=== PATIENT | male | born 1945 | race Caucasian/White ===

== ENCOUNTER 2020-07-12 09:45 | Outpatient (REF) | payer MEDICARE, SELFPAY ==
[2020-07-12 11:14] LABS: Estimated Average Glucose 157 mg/dL; Hemoglobin A1c % 7.1 %
[2020-07-12 11:31] LABS: Alanine Aminotransferase 20 U/L (0-40); Alkaline Phosphatase 101 U/L (39-117); Anion Gap 13 (12-20); Aspartate Amino Transferase 18 U/L (5-37); Bilirubin Total 0.7 mg/dL (0.0-1.0); Blood Urea Nitrogen 27 mg/dL (9-16); Calcium 9.1 mg/dL (8.4-10.2); Carbon Dioxide 29 mmol/L (22-29); Chloride 102 mmol/L (96-108); Estimated Glomerular Filt Rate > 60; Glucose Random 94 mg/dL (60-115); Potassium 4.5 mmol/l (3.3-5.1); Sodium 139 mmol/L (135-145); Total Protein 6.5 g/dL (6.5-8.0)
== END 2020-07-12 09:46 | disposition home or self-care (01) ==
LOC: HO.LAB 09:45
PROVIDERS: PCP Internal Medicine; Visit Provider Internal Medicine
DX: E03.8 Other specified hypothyroidism (principal); E11.9 Type 2 diabetes mellitus without complications; E78.00 Pure hypercholesterolemia, unspecified; Z00.00 Encounter for general adult medical examination without abnormal findings
CPT/HCPCS: 80053; 83036

== ENCOUNTER 2020-10-18 12:36 | Outpatient (REF) | payer MEDICARE, SELFPAY ==
[2020-10-18 13:48] LABS: Estimated Average Glucose 151 mg/dL; Hemoglobin A1c % 6.9 %
[2020-10-18 13:51] LABS: Alanine Aminotransferase 23 U/L (0-40); Albumin Level 4.1 g/dL (3.5-5.0); Alkaline Phosphatase 104 U/L (39-117); Anion Gap 15 (12-20); Aspartate Amino Transferase 19 U/L (5-37); Bilirubin Total 0.5 mg/dL (0.0-1.0); Blood Urea Nitrogen 31 mg/dL (9-16); Calcium 9.3 mg/dL (8.4-10.2); Carbon Dioxide 28 mmol/L (22-29); Chloride 103 mmol/L (96-108); Estimated Glomerular Filt Rate > 60; Glucose Random 77 mg/dL (60-115); Potassium 4.5 mmol/l (3.3-5.1); Sodium 141 mmol/L (135-145); Total Protein 6.7 g/dL (6.5-8.0)
[2020-10-18 14:13] LABS: Thyroid Stimulating Hormone 1.66 uIU/mL (0.32-4.0)
== END 2020-10-18 12:37 | disposition home or self-care (01) ==
LOC: HO.LAB 12:36
PROVIDERS: PCP Internal Medicine; Visit Provider Internal Medicine
DX: E03.8 Other specified hypothyroidism (principal); E11.9 Type 2 diabetes mellitus without complications; E78.00 Pure hypercholesterolemia, unspecified
CPT/HCPCS: 36415; 80053; 83036; 84443

== ENCOUNTER 2021-01-17 08:47 | Outpatient (REF) | payer MEDICARE, SELFPAY ==
[2021-01-17 09:57] LABS: Estimated Average Glucose 148 mg/dL; Hemoglobin A1c % 6.8 %
[2021-01-17 10:11] LABS: Alanine Aminotransferase 25 U/L (0-40); Alkaline Phosphatase 107 U/L (39-117); Anion Gap 12 (12-20); Aspartate Amino Transferase 18 U/L (5-37); Bilirubin Total 0.6 mg/dL (0.0-1.0); Blood Urea Nitrogen 29 mg/dL (9-16); Calcium 9.5 mg/dL (8.4-10.2); Carbon Dioxide 31 mmol/L (22-29); Chloride 102 mmol/L (96-108); Estimated Glomerular Filt Rate > 60; Glucose Random 153 mg/dL (60-115); Potassium 4.7 mmol/L (3.3-5.1); Sodium 140 mmol/L (135-145); Total Protein 6.5 g/dL (6.5-8.0)
== END 2021-01-17 08:48 | disposition home or self-care (01) ==
LOC: HO.LAB 08:47
PROVIDERS: PCP Internal Medicine; Visit Provider Internal Medicine
DX: E03.8 Other specified hypothyroidism (principal); E11.9 Type 2 diabetes mellitus without complications; E78.00 Pure hypercholesterolemia, unspecified
CPT/HCPCS: 36415; 80053; 83036

== ENCOUNTER 2021-07-04 09:28 | Outpatient (REF) | payer MEDICARE, SELFPAY ==
[2021-07-04 10:10] LABS: Estimated Average Glucose 151 mg/dL; Hemoglobin A1c % 6.9 %
[2021-07-04 10:31] LABS: Alanine Aminotransferase 19 U/L (0-40); Alkaline Phosphatase 85 U/L (39-117); Anion Gap 11 (12-20); Aspartate Amino Transferase 15 U/L (5-37); Bilirubin Total 0.6 mg/dL (0.0-1.0); Blood Urea Nitrogen 27 mg/dL (9-16); Calcium 9.2 mg/dL (8.4-10.2); Carbon Dioxide 28 mmol/L (22-29); Chloride 106 mmol/L (96-108); Cholesterol 122 mg/dL; Estimated Glomerular Filt Rate > 60; Glucose Random 130 mg/dL (60-115); HDL Cholesterol 32 mg/dL; LDL Cholesterol Calculated 65 mg/dl; Potassium 4.4 mmol/L (3.3-5.1); Sodium 141 mmol/L (135-145); Total Protein 6.5 g/dL (6.5-8.0); Triglycerides 125 mg/dL
[2021-07-04 10:42] LABS: Creatinine Urine 96.94 mg/dL; Microalbum/Creatinine Ratio Ur 6.1 ug/mg cr
[2021-07-04 10:54] LABS: Thyroid Stimulating Hormone 2.18 uIU/mL (0.32-4.0)
== END 2021-07-04 09:29 | disposition home or self-care (01) ==
LOC: HO.LAB 09:28
PROVIDERS: PCP Internal Medicine; Visit Provider Internal Medicine
DX: Z00.01 Encounter for general adult medical examination with abnormal findings (principal); E03.9 Hypothyroidism, unspecified; E11.40 Type 2 diabetes mellitus with diabetic neuropathy, unspecified; E78.00 Pure hypercholesterolemia, unspecified; I10 Essential (primary) hypertension
CPT/HCPCS: 36415; 80053; 80061; 82043; 83036; 84443

== ENCOUNTER 2021-10-05 07:30 | Outpatient (REF) | payer MEDICARE, SELFPAY ==
[2021-10-05 08:23] LABS: Estimated Average Glucose 154 mg/dL
[2021-10-05 08:40] LABS: Alanine Aminotransferase 16 U/L (0-40); Alkaline Phosphatase 102 U/L (39-117); Anion Gap 11 (12-20); Aspartate Amino Transferase 15 U/L (5-37); Bilirubin Total 0.7 mg/dL (0.0-1.0); Blood Urea Nitrogen 26 mg/dL (9-16); Calcium 9.7 mg/dL (8.4-10.2); Carbon Dioxide 32 mmol/L (22-29); Chloride 102 mmol/L (96-108); Estimated Glomerular Filt Rate > 60; Glucose Random 98 mg/dL (60-115); Potassium 4.1 mmol/L (3.3-5.1); Sodium 141 mmol/L (135-145); Total Protein 6.8 g/dL (6.5-8.0)
== END 2021-10-05 07:31 | disposition home or self-care (01) ==
LOC: HO.LAB 07:30
PROVIDERS: PCP Internal Medicine; Visit Provider Internal Medicine
DX: E03.9 Hypothyroidism, unspecified (principal); E11.40 Type 2 diabetes mellitus with diabetic neuropathy, unspecified; E78.00 Pure hypercholesterolemia, unspecified; I10 Essential (primary) hypertension
CPT/HCPCS: 36415; 80053; 83036

== ENCOUNTER 2021-12-02 08:24 | Outpatient (REF) | payer MEDICARE, SELFPAY ==
[2021-12-02 08:51] LABS: MANUAL DIFF FLAG NO
[2021-12-02 09:16] LABS: Basophils Percent Auto 0.5 % (0-2); Eosinophils Absolute Auto 0.1 X10*3/uL (0.0-0.4); Eosinophils Percent Auto 1.4 % (0-4); Hematocrit 48.5 % (42.0-52.0); Hemoglobin 15.6 g/dl (14.0-18.0); Imm Gran Abs Auto 0.04 X10*3/uL (0.00-0.03); Imm Gran Pct Auto 0.5 % (0.0-0.4); Lymphocytes Absolute Auto 2.4 X10*3/uL (1.2-4.9); Lymphocytes Percent Auto 30.1 % (20-40); Mean Corpuscular HGB Conc 32.2 g/dl (31.0-36.0); Mean Corpuscular Hemoglobin 30.6 pg (27.0-33.0); Mean Corpuscular Volume 95.1 fL (80.0-98.0); Monocytes Absolute Auto 0.5 X10*3/uL (0.1-1.2); Monocytes Percent Auto 6.6 % (2-11); Neutrophils Absolute Auto 4.8 x10*3/uL (2.0-8.3); Neutrophils Percent Auto 60.9 % (45-73); Platelet Count 150 X10*3/uL (160-400); Red Cell Distribution Width 13.5 % (11.0-16.0); White Blood Count 7.8 X10*3/uL (4.8-10.8)
[2021-12-02 09:20] LABS: INTERNATIONAL NORM RATIO 1.1 (0.9-1.1); Prothrombin Time 12.1 SEC (9.9-13.0)
[2021-12-02 09:46] LABS: Anion Gap 10 (12-20); Blood Urea Nitrogen 26 mg/dL (9-16); Calcium 9.6 mg/dL (8.4-10.2); Carbon Dioxide 30 mmol/L (22-29); Chloride 104 mmol/L (96-108); Estimated Glomerular Filt Rate > 60; Glucose Random 95 mg/dL (60-115); Potassium 4.4 mmol/L (3.3-5.1); Sodium 140 mmol/L (135-145)
== END 2021-12-02 08:25 | disposition home or self-care (01) ==
LOC: HO.LAB 08:24
PROVIDERS: PCP Internal Medicine; Visit Provider Internal Medicine Cardiovascular Disease
DX: I25.10 Atherosclerotic heart disease of native coronary artery without angina pectoris (principal)
CPT/HCPCS: 36415; 80048; 85025; 85610

== ENCOUNTER 2022-01-02 08:11 | Outpatient (REF) | payer MEDICARE, SELFPAY ==
[2022-01-02 08:37] LABS: MANUAL DIFF FLAG NO
[2022-01-02 08:55] LABS: Basophils Percent Auto 0.4 % (0-2); Eosinophils Absolute Auto 0.1 X10*3/uL (0.0-0.4); Eosinophils Percent Auto 1.4 % (0-4); Hematocrit 46.7 % (42.0-52.0); Hemoglobin 15.2 g/dl (14.0-18.0); Imm Gran Abs Auto 0.05 X10*3/uL (0.00-0.03); Imm Gran Pct Auto 0.5 % (0.0-0.4); Lymphocytes Absolute Auto 2.1 X10*3/uL (1.2-4.9); Lymphocytes Percent Auto 23.4 % (20-40); Mean Corpuscular HGB Conc 32.5 g/dl (31.0-36.0); Mean Corpuscular Hemoglobin 30.3 pg (27.0-33.0); Mean Corpuscular Volume 93.2 fL (80.0-98.0); Mean Platelet Volume 11.1 fL (9.4-12.4); Monocytes Absolute Auto 0.8 X10*3/uL (0.1-1.2); Monocytes Percent Auto 8.2 % (2-11); Neutrophils Absolute Auto 6.1 x10*3/uL (2.0-8.3); Neutrophils Percent Auto 66.1 % (45-73); Platelet Count 145 X10*3/uL (160-400); Red Blood Count 5.01 X10*6/uL (4.60-5.80); Red Cell Distribution Width 13.6 % (11.0-16.0); White Blood Count 9.2 X10*3/uL (4.8-10.8)
[2022-01-02 09:00] LABS: Estimated Average Glucose 146 mg/dL; Hemoglobin A1c % 6.7 %
[2022-01-02 09:14] LABS: Alanine Aminotransferase 17 U/L (0-40); Alkaline Phosphatase 102 U/L (39-117); Anion Gap 12 (12-20); Aspartate Amino Transferase 16 U/L (5-37); Bilirubin Total 0.8 mg/dL (0.0-1.0); Blood Urea Nitrogen 29 mg/dL (9-16); Calcium 9.6 mg/dL (8.4-10.2); Carbon Dioxide 30 mmol/L (22-29); Chloride 102 mmol/L (96-108); Estimated Glomerular Filt Rate > 60; Glucose Random 109 mg/dL (60-115); Potassium 4.4 mmol/L (3.3-5.1); Sodium 140 mmol/L (135-145); Total Protein 6.6 g/dL (6.5-8.0)
[2022-01-02 09:38] LABS: Thyroid Stimulating Hormone 1.54 uIU/mL (0.32-4.0)
[2022-01-02 09:55] LABS: INTERNATIONAL NORM RATIO 1.1 (0.9-1.1); Prothrombin Time 12.6 SEC (9.9-13.0)
== END 2022-01-02 08:12 | disposition home or self-care (01) ==
LOC: HO.LAB 08:11
PROVIDERS: Absent Provider Internal Medicine Cardiovascular Disease; PCP Internal Medicine; Visit Provider Internal Medicine
DX: I25.10 Atherosclerotic heart disease of native coronary artery without angina pectoris (principal); I11.0 Hypertensive heart disease with heart failure; I50.9 Heart failure, unspecified; E03.9 Hypothyroidism, unspecified; E11.40 Type 2 diabetes mellitus with diabetic neuropathy, unspecified; E78.00 Pure hypercholesterolemia, unspecified
CPT/HCPCS: 36415; 80053; 83036; 84443; 85025; 85610

== ENCOUNTER 2022-04-09 07:28 | Outpatient (REF) | payer MEDICARE, SELFPAY ==
[2022-04-09 07:54] LABS: MANUAL DIFF FLAG NO
[2022-04-09 08:52] LABS: Basophils Percent Auto 0.3 % (0-2); Eosinophils Absolute Auto 0.2 X10*3/uL (0.0-0.4); Eosinophils Percent Auto 1.8 % (0-4); Hematocrit 45.2 % (42.0-52.0); Hemoglobin 14.9 g/dl (14.0-18.0); Imm Gran Abs Auto 0.06 X10*3/uL (0.00-0.03); Imm Gran Pct Auto 0.7 % (0.0-0.4); Lymphocytes Absolute Auto 2.6 X10*3/uL (1.2-4.9); Lymphocytes Percent Auto 28.2 % (20-40); Mean Corpuscular Hemoglobin 30.6 pg (27.0-33.0); Mean Corpuscular Volume 92.8 fL (80.0-98.0); Mean Platelet Volume 10.9 fL (9.4-12.4); Monocytes Absolute Auto 0.6 X10*3/uL (0.1-1.2); Monocytes Percent Auto 6.9 % (2-11); Neutrophils Absolute Auto 5.6 x10*3/uL (2.0-8.3); Neutrophils Percent Auto 62.1 % (45-73); Platelet Count 148 X10*3/uL (160-400); Red Blood Count 4.87 X10*6/uL (4.60-5.80); Red Cell Distribution Width 13.8 % (11.0-16.0); White Blood Count 9.1 X10*3/uL (4.8-10.8)
[2022-04-09 09:33] LABS: Alanine Aminotransferase 19 U/L (0-40); Albumin Level 3.9 g/dL (3.5-5.0); Alkaline Phosphatase 89 U/L (39-117); Anion Gap 11 (12-20); Aspartate Amino Transferase 14 U/L (5-37); Bilirubin Total 0.7 mg/dL (0.0-1.0); Blood Urea Nitrogen 25 mg/dL (9-16); Calcium 8.9 mg/dL (8.4-10.2); Carbon Dioxide 28 mmol/L (22-29); Chloride 103 mmol/L (96-108); Cholesterol 105 mg/dL; Estimated Glomerular Filt Rate > 60; Glucose Random 141 mg/dL (60-115); HDL Cholesterol 31 mg/dL; LDL Cholesterol Calculated 52 mg/dl; Potassium 4.4 mmol/L (3.3-5.1); Sodium 138 mmol/L (135-145); Total Protein 6.3 g/dL (6.5-8.0); Triglycerides 112 mg/dL
[2022-04-09 09:42] LABS: Thyroid Stimulating Hormone 1.71 uIU/mL (0.32-4.0)
[2022-04-09 09:45] LABS: Creatinine Urine 95.65 mg/dL; Microalbum/Creatinine Ratio Ur 9.4 ug/mg cr
[2022-04-09 10:59] LABS: Vitamin B12 512 pg/mL (200-900)
== END 2022-04-09 07:29 | disposition home or self-care (01) ==
LOC: HO.LAB 07:28
PROVIDERS: PCP Internal Medicine; Visit Provider Internal Medicine
DX: D69.6 Thrombocytopenia, unspecified (principal); E03.8 Other specified hypothyroidism; E11.9 Type 2 diabetes mellitus without complications; E78.00 Pure hypercholesterolemia, unspecified; I10 Essential (primary) hypertension
CPT/HCPCS: 36415; 80053; 80061; 82043; 82607; 84443; 85025

== ENCOUNTER 2022-07-15 08:25 | Outpatient (REF) | payer MEDICARE, SELFPAY ==
[2022-07-15 09:27] LABS: Estimated Average Glucose 154 mg/dL
[2022-07-15 09:54] LABS: Alanine Aminotransferase 14 U/L (0-40); Albumin Level 3.9 g/dL (3.5-5.0); Alkaline Phosphatase 96 U/L (39-117); Anion Gap 16 (12-20); Aspartate Amino Transferase 13 U/L (5-37); Bilirubin Total 0.5 mg/dL (0.0-1.0); Blood Urea Nitrogen 30 mg/dL (9-16); Calcium 9.6 mg/dL (8.4-10.2); Carbon Dioxide 29 mmol/L (22-29); Chloride 103 mmol/L (96-108); Estimated Glomerular Filt Rate > 60; Glucose Random 106 mg/dL (60-115); Potassium 4.5 mmol/L (3.3-5.1); Sodium 143 mmol/L (135-145); Total Protein 6.5 g/dL (6.5-8.0)
[2022-07-15 10:07] LABS: Prostate Specific Antigen Scr 3.25 ng/mL (<0.05-4.0)
== END 2022-07-15 08:26 | disposition home or self-care (01) ==
LOC: HO.LAB 08:25
PROVIDERS: PCP Internal Medicine; Visit Provider Internal Medicine
DX: Z00.00 Encounter for general adult medical examination without abnormal findings (principal); Z12.5 Encounter for screening for malignant neoplasm of prostate; D69.6 Thrombocytopenia, unspecified; E11.9 Type 2 diabetes mellitus without complications; E78.00 Pure hypercholesterolemia, unspecified; N40.0 Benign prostatic hyperplasia without lower urinary tract symptoms; R00.1 Bradycardia, unspecified
CPT/HCPCS: 36415; 80053; 83036; 84153

== ENCOUNTER 2022-10-14 07:31 | Outpatient (REF) | payer MEDICARE, SELFPAY ==
[2022-10-14 07:47] LABS: MANUAL DIFF FLAG NO
[2022-10-14 08:04] LABS: Basophils Absolute Auto 0.1 X10*3/uL (0.0-0.2); Basophils Percent Auto 0.6 % (0-2); Eosinophils Absolute Auto 0.1 X10*3/uL (0.0-0.4); Eosinophils Percent Auto 1.4 % (0-4); Hematocrit 46.2 % (42.0-52.0); Hemoglobin 15.4 g/dl (14.0-18.0); Imm Gran Abs Auto 0.05 X10*3/uL (0.00-0.03); Imm Gran Pct Auto 0.6 % (0.0-0.4); Lymphocytes Absolute Auto 2.5 X10*3/uL (1.2-4.9); Lymphocytes Percent Auto 27.7 % (20-40); Mean Corpuscular HGB Conc 33.3 g/dl (31.0-36.0); Mean Corpuscular Hemoglobin 31.3 pg (27.0-33.0); Mean Corpuscular Volume 93.9 fL (80.0-98.0); Monocytes Absolute Auto 0.6 X10*3/uL (0.1-1.2); Monocytes Percent Auto 6.2 % (2-11); Neutrophils Absolute Auto 5.7 x10*3/uL (2.0-8.3); Neutrophils Percent Auto 63.5 % (45-73); Platelet Count 153 X10*3/uL (160-400); Red Blood Count 4.92 X10*6/uL (4.60-5.80); Red Cell Distribution Width 13.5 % (11.0-16.0)
[2022-10-14 08:13] LABS: Estimated Average Glucose 157 mg/dL; Hemoglobin A1c % 7.1 %
[2022-10-14 08:50] LABS: Thyroid Stimulating Hormone 1.32 uIU/mL (0.32-4.0)
[2022-10-14 09:25] LABS: Alanine Aminotransferase 25 U/L (0-40); Albumin Level 3.9 g/dL (3.5-5.0); Alkaline Phosphatase 104 U/L (39-117); Anion Gap 14 (12-20); Aspartate Amino Transferase 22 U/L (5-37); Bilirubin Total 0.6 mg/dL (0.0-1.0); Blood Urea Nitrogen 22 mg/dL (9-16); Calcium 9.7 mg/dL (8.4-10.2); Carbon Dioxide 30 mmol/L (22-29); Chloride 104 mmol/L (96-108); Estimated Glomerular Filt Rate > 60; Glucose Random 119 mg/dL (60-115); Potassium 4.7 mmol/L (3.3-5.1); Sodium 143 mmol/L (135-145); Total Protein 6.6 g/dL (6.5-8.0)
== END 2022-10-14 07:32 | disposition home or self-care (01) ==
LOC: HO.LAB 07:31
PROVIDERS: PCP Internal Medicine; Visit Provider Internal Medicine
DX: D69.6 Thrombocytopenia, unspecified (principal); E11.9 Type 2 diabetes mellitus without complications; N40.0 Benign prostatic hyperplasia without lower urinary tract symptoms; R00.1 Bradycardia, unspecified
CPT/HCPCS: 36415; 80053; 83036; 84443; 85025

== ENCOUNTER 2023-01-08 07:36 | Outpatient (REF) | payer MEDICARE, SELFPAY ==
[2023-01-08 08:25] LABS: Estimated Average Glucose 174 mg/dL; Hemoglobin A1c % 7.7 %
[2023-01-08 08:47] LABS: Alanine Aminotransferase 20 U/L (0-40); Albumin Level 3.8 g/dL (3.5-5.0); Alkaline Phosphatase 113 U/L (39-117); Anion Gap 12 (12-20); Aspartate Amino Transferase 15 U/L (5-37); Bilirubin Total 0.8 mg/dL (0.0-1.0); Blood Urea Nitrogen 21 mg/dL (9-16); Calcium 8.7 mg/dL (8.4-10.2); Carbon Dioxide 29 mmol/L (22-29); Chloride 104 mmol/L (96-108); Estimated Glomerular Filt Rate > 60; Glucose Random 170 mg/dL (60-115); Potassium 4.3 mmol/L (3.3-5.1); Sodium 141 mmol/L (135-145); Total Protein 6.1 g/dL (6.5-8.0)
== END 2023-01-08 07:37 | disposition home or self-care (01) ==
LOC: HO.LAB 07:36
PROVIDERS: PCP Internal Medicine; Visit Provider Internal Medicine
DX: D69.6 Thrombocytopenia, unspecified (principal); E03.8 Other specified hypothyroidism; E11.9 Type 2 diabetes mellitus without complications; I10 Essential (primary) hypertension
CPT/HCPCS: 36415; 80053; 83036

== ENCOUNTER 2023-04-10 07:39 | Outpatient (REF) | payer MEDICARE, SELFPAY ==
[2023-04-10 07:52] LABS: MANUAL DIFF FLAG NO
[2023-04-10 08:48] LABS: Basophils Percent Auto 0.5 % (0-2); Eosinophils Absolute Auto 0.2 X10*3/uL (0.0-0.4); Eosinophils Percent Auto 1.7 % (0-4); Hematocrit 45.6 % (42.0-52.0); Hemoglobin 14.7 g/dl (14.0-18.0); Imm Gran Abs Auto 0.05 X10*3/uL (0.00-0.03); Imm Gran Pct Auto 0.6 % (0.0-0.4); Lymphocytes Absolute Auto 2.5 X10*3/uL (1.2-4.9); Mean Corpuscular HGB Conc 32.2 g/dl (31.0-36.0); Mean Corpuscular Hemoglobin 30.5 pg (27.0-33.0); Mean Corpuscular Volume 94.6 fL (80.0-98.0); Mean Platelet Volume 11.3 fL (9.4-12.4); Monocytes Absolute Auto 0.5 X10*3/uL (0.1-1.2); Monocytes Percent Auto 6.1 % (2-11); Neutrophils Absolute Auto 5.6 x10*3/uL (2.0-8.3); Neutrophils Percent Auto 63.1 % (45-73); Platelet Count 162 X10*3/uL (160-400); Red Blood Count 4.82 X10*6/uL (4.60-5.80); Red Cell Distribution Width 13.2 % (11.0-16.0); White Blood Count 8.8 X10*3/uL (4.8-10.8)
[2023-04-10 08:54] LABS: Estimated Average Glucose 163 mg/dL; Hemoglobin A1c % 7.3 %
[2023-04-10 09:26] LABS: Alanine Aminotransferase 24 U/L (0-40); Albumin Level 3.9 g/dL (3.5-5.0); Alkaline Phosphatase 93 U/L (39-117); Anion Gap 12 (12-20); Aspartate Amino Transferase 17 U/L (5-37); Bilirubin Total 0.5 mg/dL (0.0-1.0); Blood Urea Nitrogen 21 mg/dL (9-16); Calcium 9.7 mg/dL (8.4-10.2); Carbon Dioxide 29 mmol/L (22-29); Chloride 101 mmol/L (96-108); Cholesterol 109 mg/dL; Estimated Glomerular Filt Rate > 60; Glucose Random 142 mg/dL (60-115); HDL Cholesterol 33 mg/dL; LDL Cholesterol Calculated 57 mg/dl; Potassium 4.2 mmol/L (3.3-5.1); Sodium 138 mmol/L (135-145); Total Protein 6.7 g/dL (6.5-8.0); Triglycerides 97 mg/dL
[2023-04-10 09:36] LABS: Microalbum/Creatinine Ratio Ur 9.3 ug/mg cr
[2023-04-10 09:47] LABS: Thyroid Stimulating Hormone 1.37 uIU/mL (0.32-4.0)
[2023-04-10 09:49] LABS: Prostate Specific Antigen 3.54 ng/mL (<0.05-4.0)
== END 2023-04-10 07:40 | disposition home or self-care (01) ==
LOC: HO.LAB 07:39
PROVIDERS: PCP Internal Medicine; Visit Provider Internal Medicine
DX: D69.6 Thrombocytopenia, unspecified (principal); E03.8 Other specified hypothyroidism; E11.65 Type 2 diabetes mellitus with hyperglycemia; I10 Essential (primary) hypertension; Z12.5 Encounter for screening for malignant neoplasm of prostate
CPT/HCPCS: 36415; 80053; 80061; 82043; 83036; 84153; 84443; 85025

== ENCOUNTER 2023-10-07 07:43 | Outpatient (REF) | payer MEDICARE, SELFPAY ==
[2023-10-07 08:23] LABS: Estimated Average Glucose 166 mg/dL; Hemoglobin A1c % 7.4 % (<6.0)
[2023-10-07 08:41] LABS: Alanine Aminotransferase 47 U/L (0-40); Albumin Level 4.1 g/dL (3.5-5.0); Alkaline Phosphatase 99 U/L (39-117); Anion Gap 11 (12-20); Aspartate Amino Transferase 32 U/L (5-37); Bilirubin Total 0.5 mg/dL (0.0-1.0); Blood Urea Nitrogen 26 mg/dL (9-16); Carbon Dioxide 29 mmol/L (22-29); Chloride 104 mmol/L (96-108); Estimated Glomerular Filt Rate > 60; Glucose Random 160 mg/dL (60-115); Potassium 4.3 mmol/L (3.3-5.1); Sodium 140 mmol/L (135-145); Total Protein 7.1 g/dL (6.5-8.0)
[2023-10-07 08:56] LABS: Thyroid Stimulating Hormone 1.73 uIU/mL (0.32-4.0)
== END 2023-10-07 07:44 | disposition home or self-care (01) ==
LOC: HO.LAB 07:43
PROVIDERS: PCP Internal Medicine; Visit Provider Internal Medicine
DX: E03.9 Hypothyroidism, unspecified (principal); E11.9 Type 2 diabetes mellitus without complications; I10 Essential (primary) hypertension
CPT/HCPCS: 36415; 80053; 83036; 84443

== ENCOUNTER 2024-01-07 06:59 | Outpatient (REF) | payer MEDICARE, SELFPAY ==
[2024-01-07 08:02] LABS: Estimated Average Glucose 171 mg/dL; Hemoglobin A1c % 7.6 % (<6.0)
[2024-01-07 08:16] LABS: Alanine Aminotransferase 19 U/L (0-40); Albumin Level 4.1 g/dL (3.5-5.0); Alkaline Phosphatase 117 U/L (39-117); Anion Gap 11 (12-20); Aspartate Amino Transferase 14 U/L (5-37); Bilirubin Total 0.6 mg/dL (0.0-1.0); Blood Urea Nitrogen 23 mg/dL (9-16); Carbon Dioxide 31 mmol/L (22-29); Chloride 106 mmol/L (96-108); Estimated Glomerular Filt Rate > 60; Glucose Random 141 mg/dL (60-115); Potassium 4.1 mmol/L (3.3-5.1); Sodium 144 mmol/L (135-145); Total Protein 7.1 g/dL (6.5-8.0)
== END 2024-01-07 07:00 | disposition home or self-care (01) ==
LOC: HO.LAB 06:59
PROVIDERS: PCP Internal Medicine; Visit Provider Internal Medicine
DX: E03.9 Hypothyroidism, unspecified (principal); I10 Essential (primary) hypertension; E11.9 Type 2 diabetes mellitus without complications; E78.00 Pure hypercholesterolemia, unspecified
CPT/HCPCS: 36415; 80053; 83036

== ENCOUNTER 2024-04-07 06:57 | Outpatient (REF) | payer MEDICARE, SELFPAY ==
[2024-04-07 08:23] LABS: Estimated Average Glucose 166 mg/dL; Hemoglobin A1c % 7.4 % (<6.0)
[2024-04-07 08:49] LABS: Creatinine Urine 64.53 mg/dL; Microalbum/Creatinine Ratio Ur 10.8 ug/mg cr (<30)
[2024-04-07 08:53] LABS: Alanine Aminotransferase 69 U/L (0-40); Albumin Level 3.8 g/dL (3.5-5.0); Alkaline Phosphatase 106 U/L (39-117); Anion Gap 12 (12-20); Aspartate Amino Transferase 31 U/L (5-37); Bilirubin Total 0.5 mg/dL (0.0-1.0); Blood Urea Nitrogen 26 mg/dL (9-16); Calcium 9.7 mg/dL (8.4-10.2); Carbon Dioxide 30 mmol/L (22-29); Chloride 102 mmol/L (96-108); Cholesterol 112 mg/dL (<200); Estimated Glomerular Filt Rate > 60; Glucose Random 117 mg/dL (60-115); HDL Cholesterol 31 mg/dL (>40); LDL Cholesterol Calculated 60 mg/dL (<100); Potassium 4.3 mmol/L (3.3-5.1); Sodium 140 mmol/L (135-145); Total Protein 6.4 g/dL (6.5-8.0); Triglycerides 106 mg/dL (<150)
[2024-04-07 09:10] LABS: Thyroid Stimulating Hormone 2.52 uIU/mL (0.32-4.0); Vitamin B12 618 pg/mL (200-900)
[2024-04-07 11:22] LABS: Prostate Specific Antigen Scr 3.19 ng/mL (<0.05-4.0)
== END 2024-04-07 06:58 | disposition home or self-care (01) ==
LOC: HO.LAB 06:57
PROVIDERS: PCP Internal Medicine; Visit Provider Internal Medicine
DX: E11.9 Type 2 diabetes mellitus without complications (principal); E78.00 Pure hypercholesterolemia, unspecified; I10 Essential (primary) hypertension; N40.0 Benign prostatic hyperplasia without lower urinary tract symptoms; Z12.5 Encounter for screening for malignant neoplasm of prostate
CPT/HCPCS: 36415; 80053; 80061; 82043; 82570; 82607; 83036; 84153; 84443

== ENCOUNTER 2024-06-23 07:59 | Outpatient (REF) | payer MEDICARE, SELFPAY ==
[2024-06-23 09:29] LABS: Estimated Average Glucose 169 mg/dL; Hemoglobin A1C 216.2759 umol/L; Hemoglobin A1c % 7.5 % (<6.0); Total Hemoglobin (HGBA1C) 3697.5246 umol/L
[2024-06-23 09:49] LABS: Alanine Aminotransferase 16 U/L (0-40); Alkaline Phosphatase 98 U/L (39-117); Anion Gap 11 (12-20); Aspartate Amino Transferase 14 U/L (5-37); Bilirubin Total 0.6 mg/dL (0.0-1.0); Blood Urea Nitrogen 24 mg/dL (9-16); Calcium 10.1 mg/dL (8.4-10.2); Carbon Dioxide 30 mmol/L (22-29); Chloride 104 mmol/L (96-108); Estimated Glomerular Filt Rate > 60; Glucose Random 158 mg/dL (60-115); Potassium 4.4 mmol/L (3.3-5.1); Sodium 141 mmol/L (135-145); Total Protein 6.9 g/dL (6.5-8.0)
== END 2024-06-23 08:00 | disposition home or self-care (01) ==
LOC: HO.LAB 07:59
PROVIDERS: PCP Internal Medicine; Visit Provider Internal Medicine
DX: E03.9 Hypothyroidism, unspecified (principal); E11.9 Type 2 diabetes mellitus without complications; E78.00 Pure hypercholesterolemia, unspecified; I10 Essential (primary) hypertension
CPT/HCPCS: 36415; 80053; 83036

== ENCOUNTER 2024-06-29 13:34 | Outpatient (REF) | payer MEDICARE, SELFPAY ==
--- NOTE | ~2024-06-29 | XR_ITS ---
EXAMINATION: XR BILATERAL HIP 2 VIEWS CLINICAL INFORMATION: OA hips. COMPARISON: CT Abdomen pelvis with IV contrast 07/06/2012 TECHNIQUE: AP view of the pelvis and single views of each hip were obtained. FINDINGS: Right hip arthroplasty without complication. Hardware is intact. No perihardware lucency to suggest loosening. No acute fracture or dislocation. Mild left hip osteoarthritis. No acute fractures or dislocations. Vascular calcifications present along the femoral artery. XR/XR hips HUGO min 3V IMPRESSION: No right hip arthroplasty complication. Mild left hip osteoarthritis. No acute fractures or dislocations bilaterally. Electronically signed by: Erich Gonzalez DO 09/01/2024 11:32 AM EST
== END 2024-06-29 13:35 | disposition home or self-care (01) ==
LOC: HO.XRAY 13:34
PROVIDERS: PCP Internal Medicine; Visit Provider Internal Medicine
DX: M16.0 Bilateral primary osteoarthritis of hip (principal)
CPT/HCPCS: 73522

== ENCOUNTER 2024-08-11 11:37 | Outpatient (RCR) | payer MEDICARE, SELFPAY ==
--- NOTE | 2024-07-27 14:02 | MHC.PT.EP ---
[facility] [place] Office [place] [facility] [place] Office [address] [phone] F: [phone] F: [phone] F: [phone] F: [phone] Physical Therapy Plan of Care Date of Evaluation: 07/26/24 Date of Surgery: Diagnosis: Spinal stenosis Assessment: Pt is a pleasant and motivated 78yo M who presents to PT with low back and B hip pain with intermittent radiating symptoms. He presents to PT with current impairments in pain, decreased ROM, soft tissue restrictions, decreased muscle length, decreased core stabilization, decreased hip/glute strength, decreased balance/proprioception, and impaired gait. He is limited functionally by carrying groceries, bending, twisting, prolonged standing, prolonged walking, moving in the bed, and laying in bed. He is a good candidate for skilled PT in order to address current impairments to facilitate return to PLOF. He is recommended to be seen 2x/week for 4 weeks and will be reassessed at that time Frequency and Duration: The patient will be seen 2x/week for 4 weeks Short Term Goals: Pt will be I with HEP to promote self management of symptoms Pt will have centralization of symptoms Jail Goals: Pt will get in/out of bed without pain or discomfort consistently Pt willl tolerate prolonged standing > 30 minutes with minimal to no radicular symptoms Pt demonstrate ability to ambulate 1x~100' with 5# object to simulate carrying grocery bags Treatment Plan: Modalities to reduce pain, spasms and effusion. Manual therapy to restore motion and function. Therapeutic exercise to improve strength and flexibility. Neuromuscular re-education for posture and balance. Therapeutic activities to return to functional activities of daily living. Electronically signed by: Cristina Mejía, PT, DPT Please sign and return to therapist. Thank you for your referral.
--- NOTE | 2024-09-01 10:34 | MHC.PT.DC ---
[facility] [place] Office [place] Office [place] Office [address] [place] [phone] F: [phone] F: [phone] F: [phone] F: [phone] Physical Therapy Discharge Report Diagnosis: Spinal stenosis Date of Surgery: Date of Evaluation: 07/26/24 Date of Discharge: 09/01/24 Treatments to Date: 4 Cancellations to Date: No Shows to Date: Discharge Status: Patient Elected to Stop Discharge Summary: Pt was seen for PT from 07/26/11. Pt called and requested to self D/C from skilled PT as he reports he is going to continue to go to the [facility]. Pt is being D/C from skilled PT per his request. Pt current level of function unknown at this time Electronically signed by: Cristina Mejía, PT, DPT Please sign and return to therapist. Thank you for your referral.
== END 2024-09-01 10:34 | disposition home or self-care (01) ==
LOC: HO.PT 11:37
PROVIDERS: PCP Internal Medicine; Visit Provider Internal Medicine
DX: M48.00 Spinal stenosis, site unspecified (principal)
CPT/HCPCS: 97110; 97162

== ENCOUNTER 2024-09-26 06:38 | Outpatient (REF) | payer MEDICARE, SELFPAY ==
[2024-09-26 09:26] LABS: Thyroid Stimulating Hormone 1.74 uIU/mL (0.32-4.0)
== END 2024-09-26 06:39 | disposition home or self-care (01) ==
LOC: HO.LAB 06:38
PROVIDERS: PCP Internal Medicine; Visit Provider Internal Medicine
DX: E03.9 Hypothyroidism, unspecified (principal); E11.9 Type 2 diabetes mellitus without complications; I10 Essential (primary) hypertension; M48.062 Spinal stenosis, lumbar region with neurogenic claudication
CPT/HCPCS: 36415; 84443

== ENCOUNTER 2024-12-21 16:29 | Outpatient (REF) | payer MEDICARE, SELFPAY ==
[2024-12-21 17:28] LABS: Alanine Aminotransferase 18 U/L (0-40); Alkaline Phosphatase 97 U/L (39-117); Anion Gap 11 (12-20); Aspartate Amino Transferase 18 U/L (5-37); Bilirubin Total 0.5 mg/dL (0.0-1.0); Blood Urea Nitrogen 23 mg/dL (9-16); Calcium 9.6 mg/dL (8.4-10.2); Carbon Dioxide 28 mmol/L (22-29); Chloride 106 mmol/L (96-108); Estimated Glomerular Filt Rate > 60; Glucose Random 102 mg/dL (60-115); Potassium 4.3 mmol/L (3.3-5.1); Sodium 141 mmol/L (135-145); Total Protein 6.8 g/dL (6.5-8.0)
[2024-12-21 17:31] LABS: Estimated Average Glucose 171 mg/dL; Hemoglobin A1C 233.6946 umol/L; Hemoglobin A1c % 7.6 % (<6.0); Total Hemoglobin (HGBA1C) 3949.9732 umol/L
--- OUTSIDE RECORDS SUMMARY | 2024-12-21 18:07 | XMS_ITS ---
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 Generated for Printi ng/Fakirkg/eTransmitting on:?12/21/2024 06:07 PM EDT
--- OUTSIDE RECORDS SUMMARY | 2024-12-21 18:07 | XMS_ITS ---
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 Name Role Phone Lynda Serrano Primary Care Provider Unavailab Urszula Yoder Unavailable [phone] Allergies No Known Allergies REASON FOR VISIT At Risk Footcare, Painful Nail(s) aggrevated by shoes and causing difficulty standing/walking, Toe Irritation Medications Medication SIG (Take, Route, Frequency, Duration) Notes Start Date End Date Status Extra Depth Orthopedic Shoes (1 Pair) with Customized Heat Molded Multidensity Innersoles (3 Pair) as directed Dx: NIDDM/PVD (E11.59), Hammertoe Foot Deformity (M20.41,M20.42), Preulcerative Skin Lesion(s) (L85.1) 03/17/2018 Active Atorvastatin Calcium Active metFORMIN HCl Active Vitamin D Active Extra Depth Orthopedic Shoes (1 Pair) with Customized Heat Molded Multidensity Innersoles (3 Pair) as directed Dx: NIDDM/PVD (E11.59), Hammertoe Foot Deformity (M20.41,M20.42), Preulcerative Skin Lesion(s) (L85.1) 12/03/2016 Active Aspir-81 81 MG 1 tablet Orally Once a day Active Centrum Orally Active Extra Depth Orthopedic Shoes, (1) Pair With (3) Pair Custom Heat Molded Multidensity Innersoles Dx: NIDDM/PVD(E11.51), Hammertoe Foot Deformity(M20.41,M20.42) , Preulcerative Skin Lesion(s)(L85.1) Wear Daily for 365 days Active Winnie Aspirin Active [place] 3 Active glipiZIDE XL 5 MG Oral Ac tive Metoprolol Succinate ER 50 MG 1 tablet Orally Active Levothyroxine Sodium 175 MCG Oral for 90 Active Co Q 10 Active Lisinopril-hydroCHLOROth iazide 20-12.5 MG Oral for 90 Active Pravastatin Sodium 80 MG Oral for 90 Not-Taking Cranberry Extract No t-Taking Extra Depth Orthopedic Shoes (1 Pair) with Customized Heat Molded Multidensity Innersoles (3 Pair) as directed Dx: NIDDM/PVD (E11.59), Hammertoe Foot Deformity (M20.41,M20.42), Preulcerative Skin Lesion(s) (L85.1) 03/04/2016 Not-Taking Jardiance Active Isosorbide Mononitrate ER 30 MG 1 tablet in the morning Orally Once a day for 30 day(s) Active Extra Depth Orthopedic Shoes (1 Pair) with Customized Heat Molded Multidensity Innersoles (3 Pair) as directed Dx: NIDDM (E11.9), Hammertoe Foot Deformity (M20.41,M20.42), Preulcerative Skin Lesion(s) (L85.1) 11/12/2022 Active Ciclopirox Olamine 0.77 % 1 application Externally Twice a day for 30 days Active Invokamet 150-1000 MG Oral for 90 Not-Taking glipiZIDE ER 5 MG Oral for 90 Not-Taking Invokana 300 MG Orally Once a day Not-Taking Extra Depth Orthopedic Shoes (1 Pair) with Customized Heat Molded Multidensity Innersoles (3 Pair) as directed Dx: NIDDM/PVD (E11.59), Hammertoe Foot Deformity (M20.41,M20.42), Preulcerative Skin Lesion(s) (L85.1) 07/13/2020 Active Extra Depth Orthopedic Shoes (1 Pair) with Customized Heat Molded Multidensity Innersoles (3 Pair) as directed Dx: NIDDM (E11.9), Hammertoe Foot Deformity (M20.41,M20.42), Preulcerative Skin Lesion(s) (L85.1) 09/28/2019 Active Social History Tobacco Use: Social History Observation Description Date Details (start date - stop date) Never Smoker NA - NA Tobacco use other than smoking: Question Answer Notes Are you an other tobacco user? No Tobacco Control (Standard) Question Answer Notes Tobacco use: Nonsmoker Additional Findings: Tobacco non-user Current no nsmoker AUDIT-C (Standard) Question Answer Notes Did you have a drink containing alcohol in the p ast year? No Points 0 Interpretation Negative Vital Signs Height 5 ft 11 in in 12/02/2024 Weight 250 lbs 12/02/2024 BMI 34.86 kg/m2 12/02/2024 Blood pressure systolic 120 mm Hg 12/03/19 25 Blood pressure diastolic 67 mm Hg 025 Encounters Encounter Location Date Provider Diagnosis [facility] [place] [address] [place] [address] 12/02/2024 Urszula Cornell Type 2 diabetes mellitus with other circulatory complications E11.59 ; Other hammer toe(s) (acquired), right foot M20.41 ; Tinea unguium B35.1 ; Pain in toe of left foot M79.675 ; Pain in toe of right foot M79.674 and Other hammer toe(s) (acquired), left foot M20.42 Assessments Encounter Date Diagnosis (ICD Code) Assessment Notes Treatment Notes Treatment Clinical Notes Section Notes 12/02/2024 Type 2 diabetes mellitus with other circulatory complications (ICD-10 - E11.59) 12/02/2024 Other hammer toe(s) (acquired), right foot (ICD-10 - M20.41) Patient Educated with: DIABETIC FOOT CARE INSTRUCTIONS.p df (DIABETIC FOOT CARE INSTRUCTIONS.p df) 12/02/2024 Tinea unguium (ICD-10 - B35.1) 12/02/2024 Pain in toe of left foot (ICD-10 - M79.675) 12/02/2024 Pain in toe of right foot (ICD-10 - M79.674) 12/02/2024 Other hammer toe(s) (acquired), left foot (ICD-10 - M20.42) Plan Of Treatment Medication Medication Name Sig Start Date Stop Date Notes Extra Depth Orthopedic Shoes , (1) Pair With (3) Pair Custom Heat Molded Multidensity Innersoles Dx: NIDDM/PVD(E11.51), Hammertoe Foot Deformity(M20.41,M20.42), Preulcerative Skin Lesion(s)(L85.1) Wear Daily for 365 days Treatment Notes Assessment Notes Other hammer toe(s) (acquired), right fo ot Patient Educated with: DIABETIC FOOT CARE INSTRUCTIONS.pdf (DIABETIC FOOT CARE INSTRUCTIONS.pdf) Next Appt Details Follow Up: 3 Months, Reason: Provider Name:Urszula Janie gtz, 03/03/2025 12:30:00 PM, [address] [place] [address], [id number], Procedure Notes * Category Sub-Category Detail Notes Keratoma Treatment Parring or Cutting o f Benign Hyperkeratotic Lesion(s) (-57) More than 4 Lesions - Due to the at risk nature of the patients medical condition as documented in the exam findings, performance of this keratoderma treatment is medically necessary as its management by an unskilled/untrained nonprofessional would put this patients foot and overall health at risk. Therefore, the benign hyperkeratotic lesions, ( 6) in total, locations as stated and described in the exam ( SUB MTH (s), 1 , 5, B/L , TA, T5), were pared, and/or cut utilizing a sterile 15 blade, tissue nippers, and/or power dremel instrumentation by the physician of record - 14398, Q8 Debride Nails 1-5 Procedure: Due to the cli nical pathology outlined in the exam findings, performance of this nail treatment is medically necessary as its management by an unskilled/untrained nonprofessional would put this patients foot and overall health at risk. Therefore, debridement to affected nail(s), as described in exam ( TA, T5), was performed exclusively by the physician of record to reduce/remove overall nail length, girth, thickness, subungual debris, and necrotic tissue, by manual and/or electrical means through the use of a nail nipper and/or dremel stylegrinder, to a more viable healthy nail plate or bed tissue 5 nails or fewer in number. Silver nitrate was used for any petechial bleeding as necessary. Definitive antifungal treatment options, both pharmaceutical and surgical, have been reviewed and discussed with the patient. The patient solely prefers the use of intermittent/as needed professional debridement services for their nail condition and understands that additional periodic treatments may be required as necessary to maintain effective symptomatic relief - 39421 Nail Reduction Nail Reduction , (-27) Trimming of all dystrophic nails - Due to the at risk nature of the patients medical condition as documented in the exam findings, performance of this nail treatment is medically necessary as its management by an unskilled/untrained nonprofessional would put this patients foot and overall health at risk. Therefore, the dystrophic nails, in locations as stated and described in the exam ( T1, T2, T3, T4,T6, T7, T8, T9, ), were debrided by the phisician of record to reduce/remove overall nail length and girth, by manual and electrical means with use of a nail nipper and/or dremel, to more viable healthy nail plate or bed tissue - G0127 Progress Notes * Julio LEEDOB: 6 (79 yo M)Acc No.[id number]:12/02/2024 Progress Note Patient:?Julio LEE Provider:?Urszula Cornell DPM :1945???Age:79 Y???Sex:Male Jono e:12/02/2024 Address:[address] [place] [address] Pcp:Lynda Serrano Subjective: * Chief Complaints: * ???At Risk FootcarePainful N ail(s) aggrevated by shoes and causing difficulty standing/walkingToe Irritation * HPI: ???At Risk footcare:?Pt States Last PCP Visit:?Date?09/23/2024 ???Toe pain:?Location:?B/L feet.?Duration:?several years.?Course:?worse.?Aggravated by:?shoes, any pressure.?Treatments:?states still needs - appt scheduled for January.? * ROS:?General/Constitutional:?Nausea?denies.?Vomiting?denies.?Hunger Thirst?denies.?Loss appetite?denies.?Chills?denies.?Fatigue?denies.?Fever?denies.?Night Sweats?denies.?Unexplained weight loss?denies.?Ophthalmologic:?Blurred vision?denies.?Red eye?denies.?HEENTM:?Dentures?denies.?Dizziness?denies.?Glasses/contacts?admits.?Retinopathy?den ies.?Blurred/double vision?denies.?TMJ?denies.?Discharge/drainage?denies.?Implants?denies.?Hard of hearing denies.?Difficulty chewing/swallowing/speaking?denies.?Nose bleeds?denies.?Sore mouth?denies.?Swollen glands?denies.?Respiratory:?On O xygen?denies.?Pneumonia/pleurisy?denies.?Bronchitis?denies.?Emphysema?denies.?Co ughing?denies.?Cough blood?denies.?Shortness of breath?denies.?Wheezing?denies.?Cardiovascular:?Pacemaker?denies.?MVP?denies.?WPW?denies.?CHF?denies.?Heart attack?denies.?Septal defect?denies.?Rapid beat?denies.?Chest pain ?denies.?Atrial Fib.?denies.?Murmur/Palpitations?denies.?Gastrointestinal:?Hemorrhoids?denies.?Stomach/Abdominal pain?denies.?Dark blood stool?denies.?Irritable bowel ?denies.?Constipation?denies.?Diarrhea?denies.?Vomiting?denies.?Hematology:?Swelling?denies.?Bruising?denies.?Bleeding problem?denies.?Genitourinary:?Blood urine?denies.?Frequent/Painfu/urination/bladder control?denies.?Kidney stones?denies.?Infection (UTI)?denies.?Nephropathy?denies.?Musculoskeletal:?Hammertoes?denies.?Bunions?denies.?Scoliosis/kyphosis?denies.?Muscle cramps / walking?denies.?Generalized aches and pains?denies.?Weakness?denies.?Integ.:?[place]?denies.?Scars?denies.?Corns/calluses?admits.?Ingrown nails?denies.?Painful nails?denies.?Rashes?denies.?Neurologic:?Difficulty sleeping?denies.?Bipolar?denies.?Brain disorder?denies.?Balance t rouble?denies.?Confusion?denies.?Fainting/blackouts?denies.?Headache?denies.?Noam mors?denies.? * Medical History:? * Surgical History:?Stent 08/22 013Stent 09/2013ulcer 1966hernia 1982right hip replacement 12/30/2016prostate procedure 09/01/18colonoscopy 11/14 * Hospitalization/Major Diagno stic Procedure:?[facility]- Right Hip Replacement 12/30/2016 * Family History:?Mother: dece ased, diagnosed with Diabetic - NIDDM.?Father: .? * Social History:?Tobacco Use:?Tobacco use other than smoking?Are you an other tobacco user??No ?Tobacco Control (Standard)?Tobacco use:?Nonsmoker ?Additional Findings: Tobacco non-user?Current nonsmoker ???Drugs/Alcohol:?Drugs?Have you used drugs other than those for medical reasons in the past 12 months??No ???Miscellaneous:?Caffeine: yes, frequency:, 1-2 cups per day. ?Children: no. ?Exercise: yes, [employer] , swimming 5 day a week. ?Marital status: single. ?Occupation: retired [employer]. ???Drug/Alcohol:?AUDIT-C (Standard)?Did you have a drink containing alcohol in the past year??No ?Points?0 ?Interpretation?Negative * Medications:?TakingJardiance Isosorbide Mononitrate ER 30 MG Tablet Extended Release 24 Hour 1 tablet in the morning Orally Once a day Co Q 10 Lisinopril-hydroCHLOROthiazide 20-12.5 MG Tablet Oral Metoprolol Succinate ER 50 MG Tablet Extended Release 24 Hour 1 tablet Orally Levothyroxine Sodium 175 MCG Tablet Oral glipiZIDE XL 5 MG Tablet Extended Release 24 Hour Oral Aspir-81 81 MG Tablet Delayed Release 1 tablet Orally Once a day Centrum Tablet Orally Winnie Aspirin [place] 3 Vitamin D Extra Depth Orthopedic Shoes (1 Pair) with Customized Heat Molded Multidensity Innersoles (3 Pair) as directed Dx: NIDDM/PVD (E11.59), Hammertoe Foot Deformity (M20.41,M20.42), Preulcerative Skin Lesion(s) (L85.1) Atorvastatin Calcium metFORMIN HCl Extra Depth Orthopedic Shoes (1 Pair) with Customized Heat Molded Multidensity Innersoles (3 Pair) as directed Dx: NIDDM/PVD (E11.59), Hammertoe Foot Deformity (M20.41,M20.42), Preulcerative Skin Lesion(s) (L85.1) Extra Depth Orthopedic Shoes (1 Pair) with Customized Heat Molded Multidensity Innersoles (3 Pair) as directed Dx: NIDDM (E11.9), Hammertoe Foot Deformity (M20.41,M20.42), Preulcerative Skin Lesion(s) (L85.1) Extra Depth Orthopedic Shoes (1 Pair) with Customized Heat Molded Multidensity Innersoles (3 Pair) as directed Dx: NIDDM/PVD (E11.59), Hammertoe Foot Deformity (M20.41,M20.42), Preulcerative Skin Lesion(s) (L85.1) Extra Depth Orthopedic Shoes (1 Pair) with Customized Heat Molded Multidensity Innersoles (3 Pair) as directed Dx: NIDDM (E11.9), Hammertoe Foot Deformity (M20.41,M20.42), Preulcerative Skin Lesion(s) (L85.1) Ciclopirox Olamine 0.77 % Cream 1 application Externally Twice a day Extra Depth Orthopedic Shoes, (1) Pair With (3) Pair Custom Heat Molded Multidensity Innersoles . Dx: NIDDM/PVD(E11.51), Hammertoe Foot Deformity(M20.41,M20.42), Preulcerative Skin Lesion(s)(L85.1) Wear Daily Taking Jardiance Taking Isosorbide Mononitrate ER 30 MG Tablet Extended Release 24 Hour 1 tablet in the morning Orally Once a day Taking Co Q 10 Taking Lisinopril-hydroCHLOROthiazide 20-12.5 MG Tablet Oral Taking Metoprolol Succinate ER 50 MG Tablet Extended Release 24 Hour 1 tablet Orally Taking Levothyroxine Sodium 175 MCG Tablet Oral Taking glipiZIDE XL 5 MG Tablet Extended Release 24 Hour Oral Taking Aspir-81 81 MG Tablet Delayed Release 1 tablet Orally Once a day Taking Centrum Tablet Orally Taking Winnie Aspirin Taking [place] 3 Taking Vitamin D Taking Extra Depth Orthopedic Shoes (1 Pair) with Customized Heat Molded Multidensity Innersoles (3 Pair) as directed Dx: NIDDM/PVD (E11.59), Hammertoe Foot Deformity (M20.41,M20.42), Preulcerative Skin Lesion(s) (L85.1) Taking Atorvastatin Calcium Taking metFORMIN HCl Taking Extra Depth Orthopedic Shoes (1 Pair) with Customized Heat Molded Multidensity Innersoles (3 Pair) as directed Dx: NIDDM/PVD (E11.59), Hammertoe Foot Deformity (M20.41,M20.42), Preulcerative Skin Lesion(s) (L85.1) Taking Extra Depth Orthopedic Shoes (1 Pair) with Customized Heat Molded Multidensity Innersoles (3 Pair) as directed Dx: NIDDM (E11.9), Hammertoe Foot Deformity (M20.41,M20.42), Preulcerative Skin Lesion(s) (L85.1) Taking Extra Depth Orthopedic Shoes (1 Pair) with Customized Heat Molded Multidensity Innersoles (3 Pair) as directed Dx: NIDDM/PVD (E11.59), Hammertoe Foot Deformity (M20.41,M20.42), Preulcerative Skin Lesion(s) (L85.1) Taking Extra Depth Orthopedic Shoes (1 Pair) with Customized Heat Molded Multidensity Innersoles (3 Pair) as directed Dx: NIDDM (E11.9), Hammertoe Foot Deformity (M20.41,M20.42), Preulcerative Skin Lesion(s) (L85.1) Taking Ciclopirox Olamine 0.77 % Cream 1 application Externally Twice a day Taking Extra Depth Orthopedic Shoes, (1) Pair With (3) Pair Custom Heat Molded Multidensity Innersoles . Dx: NIDDM/PVD(E11.51), Hammertoe Foot Deformity(M20.41,M20.42), Preulcerative Skin Lesion(s)(L85.1) Wear Daily Not-Taking/PRNInvokana 300 MG Tablet Orally Once a day Invokamet 150-1000 MG Tablet Oral glipiZIDE ER 5 MG Tablet Extended Release 24 Hour Oral Cranberry Extract Extra Depth Orthopedic Shoes (1 Pair) with Customized Heat Molded Multidensity Innersoles (3 Pair) as directed Dx: NIDDM/PVD (E11.59), Hammertoe Foot Deformity (M20.41,M20.42), Preulcerative Skin Lesion(s) (L85.1) Pravastatin Sodium 80 MG Tablet Oral Medication List reviewed and reconciled with the patientNot-Taking/PRN Invokana 300 MG Tablet Orally Once a day Not-Taking/PRN Invokamet 150-1000 MG Tablet Oral Not-Taking/PRN glipiZIDE ER 5 MG Tablet Extended Release 24 Hour Oral Not- Taking/PRN Cranberry Extract Not-Taking/PRN Extra Depth Orthopedic Shoes (1 Pair) with Customized Heat Molded Multidensity Innersoles (3 Pair) as directed Dx: NIDDM/PVD (E11.59), Hammertoe Foot Deformity (M20.41,M20.42), Preulcerative Skin Lesion(s) (L85.1) Not-Taking/PRN Pravastatin Sodium 80 MG Tablet Oral Medication List reviewed and reconciled with the patient * Allergies:?N.K.D.A.yes[Aller gies Verified] Objective: * Vitals:?Ht: 5 ft 11 in, Wt: 250, BMI: 34.86, Shoe size: 12-13, BP: 120/67 mm Hg, BS: 117, Wt-k.4 kg. * ???Past Orders: ???Lab:HEMOGLOBIN A1C (GLYCO HEMOGLOBIN) (Order Date - 07/22/2024) (Collection Date & Time - 07/22/2024 12:38 PM) ? Value Reference Range ?HEMOGLOBIN A1C % (HH) 7.0 * Examination: ???Ophthalmology Referral: ?DIABETES EYE EXAM?Procedure Performed:?Yes ?Date of Exam Performed?09/23/2024 ?Diabetic Retinopathy Screening:?Yes ?Retinal Screening Performed:?Yes ?Findings of Diabetic Eye Exam:?no retinopathy?Vascular: ?DP PULSES (B):?1/4, B/L.?PT PULSES (B):?1/4, LEFT, 0/4, RIGHT.?CAPILLARY FILL TIME:?delayed, all digits, B/L.?TROPHIC CONDITION-TEXTURE/ELASTICITY/TURGOR/HAIR GROWTH (B):?decreased, B/L.?TEMPERTURE GRADIENT (C):?decreased, cool to cool, proximal to distal, B/L.?PIGMENTATION:?pale, B/L.?EDEMA (C):?1/4, pitting, B/L, Feet, Ankle(s).?Nails: ?NAILS are:?Elongated, overgrown, dystrophic, lytic, greater than 3mm thick, discolored and friable with crumbly malodorous subungual debris, with pain on palpation, TA, T5, remaining nails are elongated, overgrown, dystrophic, T1, T2, T3, T4,? T6, T7, T8, T9.?Dermatologic: ?SKIN FINDINGS:? Skin exam reveals Keratotic lesion(s) located at, SUB MTH (s), 1, 5, B/L , Medial plantar, TA, T5.?Orthopedic: ?MUSCLE STRENGTH:?5/5 all groups in a symmetrical fashion , B/L.?DIGITAL DEFORMITIES:?Digital contracture, PIPJ, 2-5 B/L, incompl-reducable to push-up test, no over, nor underlapping, Reveals swelling/redness/enlargement of PIPJs, with evidence of shoe producing skin irritation , Digital contracture, PIPJ, 2-5 B/L, incompl-reducible to push-up test, no over, nor underlapping,?there is?evidence of shoe producing skin irritation.?MPJ PATHOLOGY:? Atrophied anterior fat pad B/L.?FOOTWEAR:?good condition, exhibit proper fit and accommodation for pedal deformities. OT were inspected and noted to be worn, but in good condition giving proper support at the present time , worn, non-supportive, shoe gear properties exacerbate patient's foot/toe deformity.?General Examination: ?FOOT EXAM:?Lower Extremity Neurological Exam performed:?Yes ?Visual exam of foot performed:?Yes ?Date?12/02/2024 ?Footwear Evaluation?Footwear Evaluation performed:?Yes??? 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 Plan: * Treatment: * Procedures:?Debride Nails 1-5:?Procedure:?Due to the clinical pathology outlined in the exam findings, performance of this nail treatment is medically necessary as its management by an unskilled/untrained nonprofessional would put this patients foot and overall health at risk. Therefore, debridement to affected nail(s), as described in exam ( TA, T5), was performed exclusively by the physician of record to reduce/remove overall nail length, girth, thickness, subungual debris, and necrotic tissue, by manual and/or electrical means through the use of a nail nipper and/or dremel stylegrinder, to a more viable healthy nail plate or bed tissue 5 nails or fewer in number. Silver nitrate was used for any petechial bleeding as necessary. Definitive antifungal treatment options, both pharmaceutical and surgical, have been reviewed and discussed with the patient. The patient solely prefers the use of intermittent/as needed professional debridement services for their nail condition and understands that additional periodic treatments may be required as necessary to maintain effective symptomatic relief - 75807.?Keratoma Treatment:?Parring or Cutting of Benign Hyperkeratotic Lesion(s)?(-57) More than 4 Lesions - Due to the at risk nature of the patients medical condition as documented in the exam findings, performance of this keratoderma treatment is medically necessary as its management by an unskilled/untrained nonprofessional would put this patients foot and overall health at risk. Therefore, the benign hyperkeratotic lesions, ( 6) in total, locations as stated and described in the exam (?SUB MTH (s), 1?,?5,?B/L?,?TA,?T5), were pared, and/or cut utilizing a sterile 15 blade, tissue nippers, and/or power dremel instrumentation by the physician of record - 29596, Q8.?Nail Reduction:?Nail Reduction?, (-27) Trimming of all dystrophic nails - Due to the at risk nature of the patients medical condition as documented in the exam findings, performance of this nail treatment is medically necessary as its management by an unskilled/untrained nonprofessional would put this patients foot and overall health at risk. Therefore, the dystrophic nails, in locations as stated and described in the exam ( ?T1, T2, T3, T4,T6, T7, T8, T9, ), were debrided by the phisician of record to reduce/remove overall nail length and girth, by manual and electrical means with use of a nail nipper and/or dremel, to more viable healthy nail plate or bed tissue - G0127.? * Procedure Codes:?G0127 KAUSHIK ING DYSTROPHIC NAILS ANY #, Modifiers: XS , [id number] DEBRIDE NAIL, 1-5, Modifiers: XS 07689 TRIM SKIN LESIONS, OVER 4, Modifiers: XS , Q8 * Preventive Medicine:? ??Counseling:?Shoe Gear Counseling:?Patient to obtain shoes hopefully soon.? * Follow Up:?3 Months * Images: * Sign off status: Completed true * Provider:?Urszula oCrnell DPM Date:? Generated for Emery nix/Selma/oJse on:?12/21/2024 06:06 PM EDT History and Physical Notes * HPI (History of Present Illness) Category Sub-Category Detail Notes Category Not es Toe pain Location: B/L feet Duration: several years Course: worse Aggravated by: shoes, any pressure Treatments: states still needs - appt scheduled for May At Risk footcare Pt States Last PCP Visit: Date: Examination Category Sub-Category Detail Notes Category Not es Dermatologic SKIN FINDINGS: Skin exam reveal s Keratotic lesion(s) located at, SUB MTH (s), 1, 5, B/L , Medial plantar, TA, T5 Orthopedic FOOTWEAR EVALUATION: good condit ion, exhibit proper fit and accommodation for pedal deformities. OT were inspected and noted to be worn, but in good condition giving proper support at the present time , worn, non-supportive, shoe gear properties exacerbate patient's foot/toe deformity DIGITAL DEFORMITIES: Digital contracture , PIPJ, 2-5 B/L, incompl-reducable to push-up test, no over, nor underlapping, Reveals swelling/redness/enlargement of PIPJs, with evidence of shoe producing skin irritation , Digital contracture, PIPJ, 2-5 B/L, incompl-reducible to push- up test, no over, nor underlapping, there is evidence of shoe producing skin irritation MPJ PATHOLOGY: Atrophied anterior f at pad B/L MUSCLE STRENGTH: 5/5 all groups in a symmetrical fashion , B/L General Examination FOOT EXAM: Lower Extrem ity Neurological Exam performed:: Yes Visual exam of foot performed:: Yes Date: 12/02/2024 Footwear Evaluation Footwear Evaluation performe d:: Yes Ophthalmology Referral DIABETES EYE EXAM Procedure Perform ed:: Yes ?Date of Exam Performed: 09/23/2024 Diabetic Retinopathy Screening:: Yes Retinal Screening Performed:: Yes Findings of Diabetic Eye Exam:: no retin opathy Vascular DP PULSES (B): 1/4, B/L PT PULSES (B): 1/4, LEFT, 0/4, RIGH T CAPILLARY FILL TIME: delayed, all digits , B/L TEMPERTURE GRADIENT (C): decreased, cool to cool, proximal to distal, B/L TROPHIC CONDITION-TEXTURE/ELASTICITY/TURGOR/HAIR GROWTH (B): decreased, B/L EDEMA (C): 1/4, pitting, B/L, F eet, Ankle(s) PIGMENTATION: pale, B/L Nails NAILS are: Elongated, overg rown, dystrophic, lytic, greater than 3mm thick, discolored and friable with crumbly malodorous subungual debris, with pain on palpation, TA, T5, remaining nails are elongated, overgrown, dystrophic, T1, T2, T3, T4, T6, T7, T8, T9
--- OUTSIDE RECORDS SUMMARY | 2024-12-21 18:07 | XMS_ITS ---
Author Organization [facility] marcia [place] Address [address] [facility] [place] [address] Care Team Providers Care Program Therapist Name Role Phone Lynda Serrano Primary Care Provider Unavailab Urszula Yoder Unavailable [phone] Allergies No Known Allergies REASON FOR VISIT At Risk Footcare, Painful Nail(s) aggrevated by shoes and causing difficulty standing/walking, Toe Irritation Medications Medication SIG (Take, Route, Frequency, Duration) Notes Start Date End Date Status Isosorbide Mononitrate ER 30 MG 1 tablet in the morning Orally Once a day for 30 day(s) Active Jardiance Active Co Q 10 Active Lisinopril-hydroCHLOROth iazide 20-12.5 MG Oral for 90 Active Pravastatin Sodium 80 MG Oral for 90 Not-Taking Invokamet 150-1000 MG Oral for 90 Not-Taking glipiZIDE ER 5 MG Oral for 90 Not-Taking Cranberry Extract No t-Taking Extra Depth Orthopedic Shoes (1 Pair) with Customized Heat Molded Multidensity Innersoles (3 Pair) as directed Dx: NIDDM/PVD (E11.59), Hammertoe Foot Deformity (M20.41,M20.42), Preulcerative Skin Lesion(s) (L85.1) 03/04/2016 Not-Taking Invokana 300 MG Orally Once a day Not-Taking Extra Depth Orthopedic Shoes (1 Pair) with Customized Heat Molded Multidensity Innersoles (3 Pair) as directed Dx: NIDDM/PVD (E11.59), Hammertoe Foot Deformity (M20.41,M20.42), Preulcerative Skin Lesion(s) (L85.1) 03/17/2018 Active Extra Depth Orthopedic Shoes (1 Pair) with Customized Heat Molded Multidensity Innersoles (3 Pair) as directed Dx: NIDDM (E11.9), Hammertoe Foot Deformity (M20.41,M20.42), Preulcerative Skin Lesion(s) (L85.1) 09/28/2019 Active Ciclopirox Olamine 0.77 % 1 application Externally Twice a day for 30 days Active Extra Depth Orthopedic Shoes (1 Pair) with Customized Heat Molded Multidensity Innersoles (3 Pair) as directed Dx: NIDDM/PVD (E11.59), Hammertoe Foot Deformity (M20.41,M20.42), Preulcerative Skin Lesion(s) (L85.1) 07/13/2020 Active Extra Depth Orthopedic Shoes (1 Pair) with Customized Heat Molded Multidensity Innersoles (3 Pair) as directed Dx: NIDDM (E11.9), Hammertoe Foot Deformity (M20.41,M20.42), Preulcerative Skin Lesion(s) (L85.1) 11/12/2022 Active Vitamin D Active Extra Depth Orthopedic Shoes (1 Pair) with Customized Heat Molded Multidensity Innersoles (3 Pair) as directed Dx: NIDDM/PVD (E11.59), Hammertoe Foot Deformity (M20.41,M20.42), Preulcerative Skin Lesion(s) (L85.1) 12/03/2016 Active Atorvastatin Calcium Active metFORMIN HCl Active Extra Depth Orthopedic Shoes, (1) Pair With (3) Pair Custom Heat Molded Multidensity Innersoles Dx: NIDDM/PVD(E11.51), Hammertoe Foot Deformity(M20.41,M20.42) , Preulcerative Skin Lesion(s)(L85.1) Wear Daily for 365 days 09/02/2024 Active Leawood 3 Active Centrum Orally Active Winnie Aspirin Active glipiZIDE XL 5 MG Oral Ac tive Aspir-81 81 MG 1 tablet Orally Once a day Active Metoprolol Succinate ER 50 MG 1 tablet Orally Active Levothyroxine Sodium 175 MCG Oral for 90 Active Social History Tobacco Use: Social History Observation Description Date Details (start date - stop date) Never Smoker NA - NA Tobacco Use/Smoking Question Answer Notes Are you a: nonsmoker Additional Findings: Tobacco Non-User Current no n-smoker Alcohol Screen Question Answer Notes Did you have a drink containing alcohol in the p ast year? No Points 0 Interpretation Negative Tobacco use other than smoking: Question Answer Notes Are you an other tobacco user? No Vital Signs Height 5 ft 11 in in 09/02/2024 Weight 250 lbs 09/02/2024 BMI 34.86 kg/m2 09/02/2024 Blood pressure systolic 116 mm Hg 09/02/20 24 Blood pressure diastolic 67 mm Hg 024 Encounters Encounter Location Date Provider Diagnosis [facility] [place] [address] [place] [address] 09/02/2024 Urszula Cornell Type 2 diabetes mellitus with other circulatory complications E11.59 ; Other hammer toe(s) (acquired), right foot M20.41 ; Tinea unguium B35.1 ; Pain in toe of left foot M79.675 ; Pain in toe of right foot M79.674 and Other hammer toe(s) (acquired), left foot M20.42 Assessments Encounter Date Diagnosis (ICD Code) Assessment Notes Treatment Notes Treatment Clinical Notes Section Notes 09/02/2024 Type 2 diabetes mellitus with other circulatory complications (ICD-10 - E11.59) 09/02/2024 Other hammer toe(s) (acquired), right foot (ICD-10 - M20.41) Patient Educated with: DIABETIC FOOT CARE INSTRUCTIONS.p df (DIABETIC FOOT CARE INSTRUCTIONS.p df) 09/02/2024 Tinea unguium (ICD-10 - B35.1) 09/02/2024 Pain in toe of left foot (ICD-10 - M79.675) 09/02/2024 Pain in toe of right foot (ICD-10 - M79.674) 09/02/2024 Other hammer toe(s) (acquired), left foot (ICD-10 - M20.42) Plan Of Treatment Medication Medication Name Sig Start Date Stop Date Notes Extra Depth Orthopedic Shoes , (1) Pair With (3) Pair Custom Heat Molded Multidensity Innersoles Dx: NIDDM/PVD(E11.51), Hammertoe Foot Deformity(M20.41,M20.42), Preulcerative Skin Lesion(s)(L85.1) Wear Daily for 365 days 09/02/2024 Treatment Notes Assessment Notes Other hammer toe(s) (acquired), right fo ot Patient Educated with: DIABETIC FOOT CARE INSTRUCTIONS.pdf (DIABETIC FOOT CARE INSTRUCTIONS.pdf) Next Appt Details Follow Up: 3 Months, Reason: Provider Name:Urszula Janie gtz, 03/03/2025 12:30:00 PM, [address] [place] [address], [phone], Procedure Notes * Category Sub-Category Detail Notes [...] instrumentation by the physician of record - 80563, Q8 Debride Nails 1-5 Procedure: Due to the cli nical pathology outlined in the exam findings, performance of this nail treatment is medically necessary as its management by an unskilled/untrained nonprofessional would put this patients foot and overall health at risk. Therefore, debridement to affected nail(s), as described in exam , was performed exclusively by the physician of [...] necessary to maintain effective symptomatic relief - 76413 Nail Reduction Nail Reduction Trimming of dyst rophic nails performed to reduce/remove overall nail length and girth, by manual and electrical means with use of a nail nipper and/or dremel, to more viable healthy nail plate or bed tissue 6-10 (G0127) Progress Notes * Julio LEEDOB: 6 (79 yo M)Acc No.[id number]:09/02/2024 Progress Note Patient:?Julio LEE Provider:?Urszula Cornell DPM :1945???Age:79 Y???Sex:Male Jono e:09/02/2024 Address:[address] [place], [place] [id number] Pcp:Lynda Serrano Subjective: * Chief Complaints: * ???At Risk FootcarePainful N ail(s) aggrevated by shoes and causing difficulty standing/walkingToe Irritation * HPI: ???At Risk footcare:?Pt States Last PCP Visit:?Date?07/22/2024 ???Toe pain:?Location:?B/L feet.?Duration:?several years.?Course:?worse.?Aggravated by:?shoes, any pressure.?Treatments:?change in shoes.? * ROS:?General/Constitutional:?Nausea?denies.?Vomiting?denies.?Hunger Thirst?denies.?Loss appetite?denies.?Chills?denies.?Fatigue?denies.?Fever?denies.?Night Sweats?denies.?Unexplained weight loss?denies.?Ophthalmologic:?Blurred [...] - NIDDM.?Father: .? * Social History:?Tobacco Use:?Tobacco Use/Smoking?Are you a:?nonsmoker ?Additional Findings: Tobacco Non-User?Current non-smoker ?Tobacco use other than smoking?Are you an other tobacco user??No ???Drugs/Alcohol:?Drugs?Have you used drugs other than those for medical reasons in the past 12 months??No ?Alcohol Screen?Did you have a drink containing alcohol in the past year??No ?Points?0 ?Interpretation?Negative ???Miscellaneous:?Caffeine: yes, frequency:, 1-2 cups per day. ?Children: no. ?Exercise: yes, [employer] , swimming 5 day a week. ?Marital status: single. ?Occupation: retired [employer]. * Medications:?TakingJardiance Isosorbide Mononitrate ER 30 MG [...] a day Centrum Tablet Orally Winnie Aspirin Leawood 3 Vitamin D Extra Depth Orthopedic Shoes [...] 1 application Externally Twice a day Taking Jardiance Taking Isosorbide Mononitrate ER 30 [...] Centrum Tablet Orally Taking Winnie Aspirin Taking Leawood 3 Taking Vitamin D Taking Extra Depth [...] Cream 1 application Externally Twice a day Not-Taking/PRNInvokana 300 MG Tablet Orally Once a [...] 250, BMI: 34.86, Shoe size: 12-13, BP: 116/67 mm Hg, BS: 172, Wt-k.4 kg. * ???Past Orders: ???Lab:HEMOGLOBIN A1C (GLYCO HEMOGLOBIN) (Order Date - 07/22/2024) (Collection Date & Time - 07/22/2024 12:38 PM) ? Value Reference Range ?HEMOGLOBIN A1C % (HH) 7.0 * Examination: ???Ophthalmology Referral: ?DIABETES EYE EXAM?Procedure Performed:?Yes ?Date of Exam Performed?09/21/2023 ?Findings of Diabetic Eye Exam:?no retinopathy?Vascular: ?DP PULSES(B):?1/4, B/L.?PT PULSES(B):?1/4, LEFT, 0/4, RIGHT.?CAPILLARY FILL TIME:?delayed, all digits, B/L.?TROPHIC CONDITION-TEXTURE/ELASTICITY/TURGOR/HAIR GROWTH(B):?decreased, B/L.?TEMPERTURE GRADIENT(C):?decreased, cool to cool, proximal to distal, B/L.?PIGMENTATION:?pale, B/L.?EDEMA(C):?1/4, pitting, B/L, Feet, Ankle(s).?Nails: ?NAILS are:?Elongated, overgrown, dystrophic, lytic, greater than 3mm thick, discolored and friable with crumbly malodorous subungual debris, with pain on palpation, TA, T5, remaining nails are elongated, overgrown, dystrophic.?Dermatologic: ?SKIN FINDINGS:? Skin exam reveals Keratotic lesion(s) located at, SUB MTH (s), 1?,?5, B/L , TA, T5.?Orthopedic: ?MUSCLE STRENGTH:?5/5 all groups in [...] Examination: ?FOOT EXAM:?Lower Extremity Neurological Exam performed:?Yes ?Footwear Evaluation?Footwear Evaluation performed:?Yes??? 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 , was performed exclusively by the physician of [...] necessary to maintain effective symptomatic relief - 18951.?Keratoma Treatment:?Parring or Cutting of Benign Hyperkeratotic Lesion(s)?(-57) [...] instrumentation by the physician of record - 50713, Q8.?Nail Reduction:?Nail Reduction?Trimming of dystrophic nails performed to reduce/remove overall nail length and girth, by manual and electrical means with use of a nail nipper and/or dremel, to more viable healthy nail plate or bed tissue 6-10 (G0127).? * Procedure Codes:?G0127 KAUSHIK ING DYSTROPHIC NAILS ANY #, Modifiers: XS , [id number] DEBRIDE NAIL, 1-5, Modifiers: XS 03028 TRIM SKIN LESIONS, OVER 4, Modifiers: XS , Q8 * Preventive Medicine:? ??Counseling:?Discussion:?-14: Office or other outpatient visit for the evaluation and management of an established patient, which required a medically appropriate history and/or examination and MODERATE level of DECISION MAKING for: 1 OR MORE CHRONIC PROBLEM(S) THATS WORSENING, 2 STABLE CHRONIC PROBLEMS, A NEWLY DIAGNOSED PROBLEM WITH UNCERTAIN PROGNOSIS, AN ACUTE COMPLICATED INJURY WITH MULTIPLE TREATMENT OPTIONS, OR AN ACUTE PROBLEM WITH ACCOMPANYING SYSTEMIC SYMPTOMS, THAT POSE(S) A MODERATE RISK OF MORBIDITY. THIS CONDITION MAY ALSO INCLUDE RX DRUG MANAGEMENT, OR A DECISON FOR MINOR SURGERY. The visit on the day of the encounter encompassed interpreting the data and educating the patient as to the nature of their condition, treatment options available according to their individual PMH, meds, allergies, and overall health/living conditions, as well as any potential risks or complications that may occur from a failure to adhere to, and participate in, the recommended course of therapy. The discussion included a complete verbal, and/or written explanation of the examination results, any x-rays taken, the proposed diagnosis, and outline of the treatment plan. A schedule for future care needs was also explained. The patient verbalized an understanding of the instructions at this time and agreed to be an active participant in their treatment. If the patient should think of any questions or concerns after the visit, I have encouraged the patient to call the office.?Digital Surgery:?Digital surgery was discussed with the patient, We elected to try conservative treatment at the present time, due to the patients medical history and increased asssociated post-operative risks.?Digital Treatment:?HT- I explained to the patient the possible etiologies of Hammertoes, including genetics/foot type/shoegear/activity level/exercise routine and the risks/benefits of all the different treatment options for their pain including: No treatment at all, Rest, Ice, New/supportive/wider/deeper Shoegear, Digital Padding/Strapping/Taping/Bracing/Gel protective sleeves, Foot/Ankle AFO Bracing, Stretching exercises, Deep Tissue Massage, Arch support/shoe inserts with splay metatarsal padding, and Custom orthoses. I insisted that any digital devices be removed daily and not worn overnight for safety. The patient is to carefully examine the toes daily for any skin irritation while using any splinting or padding device. The advantages and disadvantages of each option were discussed and the patients questions re: shoegear, padding, custom vs prefabricated inserts, activity level, and consistency in home treatment regimens for optimal success were answered to their verbally confirmed satisfaction.?Shoe Gear Counseling:?SHOE Rx - The patient was counseled in great detail on their muscoloskeletal foot and toe deformities which coincided with the dermatological presentations visualized on exam. We discussed how their deformities put the integrity of their feet at risk for potential pedal complications which makes the accomidative diabetic shoes and cutomizable inserts medically necessary. We discussed the different shoe and insert treatment types and options, as well as the important advantages for adhering to regularly wearing these accomidative devices daily. The patient was made aware of the fact that a failure to abide by these recommedations may be deleterious to their foot health as they are able to prevent many pedal complications such as skin irritation, skin ulceration, infection, and even loss of toe/foot/leg/or life. Time was also spent with the patient dispensing and discussing proper diabetic footcare techniques including daily skin moisturization, daily foot inspection for any interruption in skin integrity including open lesions, or sign of infection such as redness/malodor/drainage/swelling. Also discussed and recommended were procedures regarding daily shoe inspection for the presence of internal foreign bodies as well as any visualized irregular shoe or insert wear. Patient questions re: shoes, inserts, and self foot inspections were answered to their satisfaction as the patient verbally confirmed a full understanding of the above information. A Rx for Extra Depth Orthopedic Shoes with 3 pair of custom heat-molded inserts was dispensed.? * Follow Up:?3 Months * Images: * Sign off status: Completed true * Provider:?Urszula Cornell DPM Date:? Generated for Emery nix/Selma/Odellitting on:?12/21/2024 06:07 PM EDT History and Physical Notes * HPI (History of Present Illness) Category Sub-Category Detail Notes Category Not es Toe pain Location: B/L feet Duration: several years Course: worse Aggravated by: shoes, any pressure Treatments: change in shoes At Risk footcare Pt States Last PCP Visit: Date: 4 Examination Category Sub-Category Detail Notes Category Not es Dermatologic SKIN FINDINGS: Skin exam reveal s Keratotic lesion(s) located at, SUB MTH (s), 1 , 5, B/L , TA, T5 Orthopedic FOOTWEAR EVALUATION: good condit [...] Lower Extrem ity Neurological Exam performed:: Yes Footwear Evaluation Footwear Evaluation performe d:: Yes Ophthalmology Referral DIABETES EYE EXAM Procedure Perform ed:: Yes ?Date of Exam Performed: 09/21/2023 Findings of Diabetic Eye Exam:: no retin [...] TA, T5, remaining nails are elongated, overgrown, dystrophic
--- OUTSIDE RECORDS SUMMARY | 2024-12-21 18:07 | XMS_ITS | Clinical Summary ---
Author Organization [facility] [place] Address [address] [place] [address] Care Team Providers Care Fleet Service Clerk Name Role Phone Unavailable Primary Care Provider Unavailabl e Social History Tobacco Use Types Packs/Day Years Used Date Smoking Tobacco: Never Assessed Sex and Gender Information Value Date Recorded Sex Assigned at Not on file Legal Sex Male 11:12 AM EST Gender Identity Not on file Sexual Orientation Not on file Plan of Treatment Health Maintenance Due Date Last Done Comments DTaP,Tdap,and Td Vaccines (1 - Tdap) 1965 Pneumococcal Vaccine: 50+ Ye ars (1 of 1 - PCV) 1996 Zoster Vaccines (1 of 2) 1996 RSV Immunization Adult Patie nts (1 - 1-dose 75+ series) 2021 Cholesterol Screening (Lipid Panel) 04/12/2024 Depression Screening 04/12/2024 Falls Risk Assessment 04/12/2024 Hepatitis C Screening 04/12/2024 Social Influencers of Health Screening 04/12/2024 COVID-19 Vaccine (1 - 2023-2 5 season) 2024 Influenza Vaccine (#1) 2024 HIB Vaccines Aged Out No longer eligi ble based on patient's age to complete this topic HPV Vaccines Aged Out No longer eligi ble based on patient's age to complete this topic Hepatitis A Vaccines Aged Out No long er eligible based on patient's age to complete this topic Hepatitis B Vaccines Aged Out No long er eligible based on patient's age to complete this topic IPV Vaccines Aged Out No longer eligi ble based on patient's age to complete this topic MMR Vaccines Aged Out No longer eligi ble based on patient's age to complete this topic Meningococcal ACWY Vaccine Aged Out N o longer eligible based on patient's age to complete this topic Meningococcal B Vacine Aged Out No lo nger eligible based on patient's age to complete this topic RSV Immunization Patients Un caitlyn 20 months Aged Out No longer eligible b ased on patient's age to complete this topic Varicella Vaccines Aged Out No longer eligible based on patient's age to complete this topic Advance Directives Documents on File Type Date Recorded Patient Clay Pigeon Setter Expl anation Health Care Decision (hx) 01/01/2017 AD BARBARA DIRECTIVE
--- OUTSIDE RECORDS SUMMARY | 2024-12-21 18:07 | XMS_ITS | Patient Health Record ---
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) Diagnosis 2 Other hammer toe(s) (acquired), right foot (M20.41) Diagnosis 3 Other hammer toe(s) (acquired), left foot (M20.42) Diagnosis 4 Hammer toe of left f oot (M20.42) Referring Provider First Name Lynda Referring Provider Last Name Maggie Referred [facility] [place] Referred Provider Urszula Cornell Referred Address [address] [facility] [address],[place],[address],[place] Referred Provider Specialty Podiatry Referral Priority Routine Medications Medication SIG (Take, Route, Frequency, Duration) Notes Start Date End Date Status glipiZIDE XL 5 MG Oral Ac tive Metoprolol Succinate ER 50 MG 1 tablet Orally Active Pravastatin Sodium 80 MG Oral for 90 Not-Taking Levothyroxine Sodium 175 MCG Oral for 90 Active Co Q 10 Active Cranberry Extract No t-Taking Extra Depth Orthopedic Shoes, (1) Pair With (3) Pair Custom Heat Molded Multidensity Innersoles Dx: NIDDM/PVD(E11.51), Hammertoe Foot Deformity(M20.41,M20.42) , Preulcerative Skin Lesion(s)(L85.1) Wear Daily for 365 days Active Lisinopril-hydroCHLOROth iazide 20-12.5 MG Oral for 90 Active Extra Depth Orthopedic Shoes (1 Pair) with Customized Heat Molded Multidensity Innersoles (3 Pair) as directed Dx: NIDDM/PVD (E11.59), Hammertoe Foot Deformity (M20.41,M20.42), Preulcerative Skin Lesion(s) (L85.1) 03/04/2016 Not-Taking Jardiance Active Invokamet 150-1000 MG Oral for 90 Not-Taking Isosorbide Mononitrate ER 30 MG 1 tablet in the morning Orally Once a day for 30 day(s) Active glipiZIDE ER 5 MG Oral for 90 Not-Taking Invokana 300 MG Orally Once a day Not-Taking Aspir-81 81 MG 1 tablet Orally Once a day Active Centrum Orally Active Extra Depth Orthopedic Shoes (1 Pair) with Customized Heat Molded Multidensity Innersoles (3 Pair) as directed Dx: NIDDM/PVD (E11.59), Hammertoe Foot Deformity (M20.41,M20.42), Preulcerative Skin Lesion(s) (L85.1) 03/17/2018 Active Extra Depth Orthopedic Shoes (1 Pair) with Customized Heat Molded Multidensity Innersoles (3 Pair) as directed Dx: NIDDM (E11.9), Hammertoe Foot Deformity (M20.41,M20.42), Preulcerative Skin Lesion(s) (L85.1) 09/28/2019 Active Atorvastatin Calcium Active metFORMIN HCl Active Vitamin D Active Extra Depth Orthopedic Shoes (1 Pair) with Customized Heat Molded Multidensity Innersoles (3 Pair) as directed Dx: NIDDM/PVD (E11.59), Hammertoe Foot Deformity (M20.41,M20.42), Preulcerative Skin Lesion(s) (L85.1) 12/03/2016 Active Winnie Aspirin Active [place] 3 Active Extra Depth Orthopedic Shoes (1 Pair) [...] (M20.41,M20.42), Preulcerative Skin Lesion(s) (L85.1) 07/13/2020 Active Immunizations Vaccine Route Administration Date Status Comme nts Pneumococcal Unknown 06/16/2012 Administered Influenza Unknown 03/04/2016 Administered Influenza Unknown 03/04/2017 Refused Pt is due to h ave Flu shot just has not recieved it yet Influenza Unknown 07/20/2017 Administered Influenza Unknown 05/22/2018 Administered Influenza Unknown 06/28/2020 Administered Influenza Unknown 06/21/2021 Administered Influenza Unknown 05/22/2022 Administered Influenza Unknown 07/22/2023 Administered COVID-19 Moderna Vaccine Unknown 08/06/2021 Administere d First Dose: 11/24/2020 Second Dose: 12/22/2020 Social History Tobacco Use: Social History Observation [...] ast year? No Points 0 Interpretation Negative Problems Problem Type SNOMED Code ICD Code Onset Dates Problem Status W/U Status Risk Notes Problem Acquired hammer toe of right foot (8845122711685 105) Other hammer toe(s) (acquired), right foot (M20.41) Active confirmed Problem Acquired hammer toe of left foot (9188893717144 103) Other hammer toe(s) (acquired), left foot (M20.42) Active confirmed Problem 50331465 Type 2 diabetes mellitus with other circulatory complications (E11.59) Active confirmed Problem 326420299 Hammer toe of left foot (M20.42) Active confirmed Vital Signs Blood pressure diastolic 67 mm Hg 12/02/2024 Height 5 ft 11 in in 12/02/2024 Blood pressure systolic 120 mm Hg 12/02/2024 Weight 250 lbs 12/02/2024 BMI 34.86 kg/m2 12/02/2024 Encounters Encounter Location Date Provider Diagnosis [address] [address] 02/26/2024 Urszula Cornell Other hammer toe(s) (acquired), left foot M20.42 ; Tinea pedis of both feet B35.3 ; Other hammer toe(s) (acquired), right foot M20.41 ; Type 2 diabetes mellitus with other circulatory complications E11.59 ; Tinea unguium B35.1 ; Pain in toe of left foot M79.675 and Pain in toe of right foot M79.[address] [address] 06/03/2024 Urszula Cornell Type 2 diabetes mellitus with other circulatory complications E11.59 ; Tinea unguium B35.1 ; Pain in toe of left foot M79.675 and Pain in toe of right foot M79.[address] [address] 09/02/2024 Urszula Cornell Type 2 diabetes mellitus with other circulatory complications E11.59 ; Other hammer toe(s) (acquired), right foot M20.41 ; Tinea unguium B35.1 ; Pain in toe of left foot M79.675 ; Pain in toe of right foot M79.674 and Other hammer toe(s) (acquired), left foot M20.[address] [address] 12/02/2024 Urszula Cornell Type 2 diabetes mellitus with other circulatory complications E11.59 ; Other hammer toe(s) (acquired), right foot M20.41 ; Tinea unguium B35.1 ; Pain in toe of left foot M79.675 ; Pain in toe of right foot M79.674 and Other hammer toe(s) (acquired), left foot M20.[facility] [address] 08/30/2024 Urszula Cornell Assessments Encounter Date Diagnosis (ICD Code) Assessment Notes Treatment Notes Treatment Clinical Notes Section Notes 02/26/2024 Other hammer toe(s) (acquired), left foot (ICD-10 - M20.42) 02/26/2024 Tinea pedis of both feet (ICD-10 - B35.3) 06/03/2024 Tinea unguium (ICD-10 - B35.1) 06/03/2024 Type 2 diabetes mellitus with other circulatory complications (ICD-10 - E11.59) 09/02/2024 Other hammer toe(s) (acquired), right foot (ICD-10 - M20.41) Patient Educated with: DIABETIC FOOT CARE INSTRUCTIONS.p df (DIABETIC FOOT CARE INSTRUCTIONS.p df) 09/02/2024 Type 2 diabetes mellitus with other circulatory complications (ICD-10 - E11.59) 12/02/2024 Other hammer toe(s) (acquired), right foot (ICD-10 - M20.41) Patient Educated with: DIABETIC FOOT CARE INSTRUCTIONS.p df (DIABETIC FOOT CARE INSTRUCTIONS.p df) 12/02/2024 Type 2 diabetes mellitus with other circulatory complications (ICD-10 - E11.59) 12/02/2024 Tinea unguium (ICD-10 - B35.1) 09/02/2024 Tinea unguium (ICD-10 - B35.1) 06/03/2024 Pain in toe of left foot (ICD-10 - M79.675) 02/26/2024 Other hammer toe(s) (acquired), right foot (ICD-10 - M20.41) 02/26/2024 Type 2 diabetes mellitus with other circulatory complications (ICD-10 - E11.59) 06/03/2024 Pain in toe of right foot (ICD-10 - M79.674) 09/02/2024 Pain in toe of left foot (ICD-10 - M79.675) 12/02/2024 Pain in toe of left foot (ICD-10 - M79.675) 12/02/2024 Pain in toe of right foot (ICD-10 - M79.674) 09/02/2024 Pain in toe of right foot (ICD-10 - M79.674) 02/26/2024 Tinea unguium (ICD-10 - B35.1) 02/26/2024 Pain in toe of left foot (ICD-10 - M79.675) 09/02/2024 Other hammer toe(s) (acquired), left foot (ICD-10 - M20.42) 12/02/2024 Other hammer toe(s) (acquired), left foot (ICD-10 - M20.42) 02/26/2024 Pain in toe of right foot (ICD-10 - M79.674) Plan Of Treatment Pending Test Test Name Order Date 05253-BILLPAU NAIL, -03/04/2016 73620-GOELKTV NAIL, -06/03/2016 59126-GOCKDFU NAIL, 09-2509/03/2016 19274-ANATBTC NAIL, -12/03/2016 74589-NNMRLQF NAIL, -03/04/2017 12722-PGOJBRL NAIL, -06/10/2017 45501-ODDPXVL NAIL, -09/09/2017 30248-SLFJQSP NAIL, -12/16/2017 53688-AKBWNRK NAIL, -03/17/2018 00077-XMTPJYT NAIL, -06/16/2018 33534-AKDCMTQ NAIL, -09/22/2018 01327-PAND SKIN LESIONS, OVER 4 09/22/19 19 65295-PNPH SKIN LESIONS, OVER 4 06/16/20 18 83598-DJLF SKIN LESIONS, OVER 4 03/17/20 18 31777-UYZV SKIN LESIONS, OVER 4 12/17/19 18 42439-XARI SKIN LESIONS, OVER 4 09/09/20 17 52264-MPNH SKIN LESIONS, OVER 4 06/10/20 17 49417-ICLC SKIN LESIONS, OVER 4 03/04/20 17 88088-DRLK SKIN LESIONS, 2 TO 4 12/04/19 17 78734-BDCI SKIN LESIONS, 2 TO 4 09/03/20 16 D9698-YDTCNLSZ DYSTROPHIC NAILS ANY # D3202-IAWCPMUG DYSTROPHIC NAILS ANY # Z6617-SRFEDLZU DYSTROPHIC NAILS ANY # B9712-AHULEGSQ DYSTROPHIC NAILS ANY # Y6499-LSTJZOAD DYSTROPHIC NAILS ANY # E0228-VDMDEVUY DYSTROPHIC NAILS ANY # O6844-PJDFCUWV DYSTROPHIC NAILS ANY # A4845-OTDUUOFJ DYSTROPHIC NAILS ANY # A7252-RZCVXQVZ DYSTROPHIC NAILS ANY # P8531-RAWZUNTC DYSTROPHIC NAILS ANY # U3795-KRPEHMKV DYSTROPHIC NAILS ANY # Next Appt Details Provider Name:Urszula gtz, 03/03/2025 12:30:00 PM, [address] [facility], [place], [address], Insurance Providers Payer Name Payer Address Payer Phone Subscriber Number Group Number Insured Name Patient Relationship to Insured Coverage Start Date Coverage End Date [employer] Preferred [address] [place] [address] [id number] Julio Lee Self - patient is the insured Medical (General) History Medical History History ICD Code Arthritis Back,Hip,and Knee pain Diabetic type 2 Thyroid disorder Hypothyroidism Hypertension CAD ( Coronary Artery Disease) Obesity Hematuria Hyperlipidemia hip replacement, RT Surgical History Surgery Date(Month/Year) Stent 08/2013 Stent 09/2013 ulcer 1966 hernia 1982 right hip replacement 12/30/2016 prostate procedure 09/01/18 colonoscopy 11/14 Hospitalization History Reason Date(Month/Year) [facility]- Right Hip Replacement 12/30/2016
== END 2024-12-21 16:30 | disposition home or self-care (01) ==
LOC: HO.LAB 16:29
PROVIDERS: PCP Internal Medicine; Visit Provider Internal Medicine
DX: E03.9 Hypothyroidism, unspecified (principal); E11.9 Type 2 diabetes mellitus without complications; I10 Essential (primary) hypertension; Z68.35 Body mass index [BMI] 35.0-35.9, adult
CPT/HCPCS: 36415; 80053; 83036

== ENCOUNTER 2025-04-06 07:15 | Outpatient (REF) | payer MEDICARE, SELFPAY ==
--- OUTSIDE RECORDS SUMMARY | 2025-04-06 07:17 | XMS_ITS | Clinical Summary ---
Author Organization [facility] ity Address [address] [place] [address] Care Team Providers Care Dinker Name Role Phone Unavailable Primary Care Provider [...] 2023-2 5 season) 2024 Influenza Vaccine (#1) 2025 HIB Vaccines Aged Out No longer eligi [...] age to complete this topic Meningococcal B Vaccine Aged Out No l onger eligible based on patient's age to complete this topic RSV Immunization Patients Un caitlyn 20 months Aged Out No longer eligible b ased on patient's age to complete this topic Varicella Vaccines Aged Out No longer eligible based on patient's age to complete this topic Advance Directives Documents on File Type Date 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
[2025-04-06 09:06] LABS: Cholesterol 116 mg/dL (<200); HDL Cholesterol 37 mg/dL (>40); Triglycerides 93 mg/dL (<150)
[2025-04-06 09:15] LABS: Thyroid Stimulating Hormone 2.31 uIU/mL (0.32-4.0)
[2025-04-06 09:19] LABS: Microalbum/Creatinine Ratio Ur 10.9 ug/mg cr (<30)
== END 2025-04-06 07:16 | disposition home or self-care (01) ==
LOC: HO.LAB 07:15
PROVIDERS: Visit Provider Internal Medicine
DX: E03.9 Hypothyroidism, unspecified (principal); E11.9 Type 2 diabetes mellitus without complications; E78.00 Pure hypercholesterolemia, unspecified; I10 Essential (primary) hypertension; Y71.2 Prosthetic and other implants, materials and accessory cardiovascular devices associated with adverse incidents
CPT/HCPCS: 36415; 80061; 82043; 82570; 84443

== ENCOUNTER 2025-07-06 08:35 | Outpatient (REF) | payer MEDICARE, SELFPAY ==
[2025-07-06 09:05] LABS: MANUAL DIFF FLAG NO
--- OUTSIDE RECORDS SUMMARY | 2025-07-06 09:07 | XMS_ITS | Clinical Summary ---
Author Organization [facility] Address [address] [facility] [address] [place] [address] Phone Care Team Providers Care Switcher Name Role Phone Lynda Serrano MD Primary Care Provider Allergies No known active allergies Medications lisinopril-hydroC HLOROthiazide (PRINZIDE,ZESTORE TIC) 20-12.5 mg per tablet Take 1 tablet by mouth daily. Active levothyroxine (SYNTHROID, LEVOTHROID) 175 MCG tablet Take 175 mcg by mouth every morning. Active metoprolol succinate (TOPROL-XL) 100 MG 24 hr tablet Take 100 mg by mouth daily. Active cholecalciferol (CHOLECALCIFEROL) 25 MCG (1,000 unit) tablet Take 1,000 Units by mouth. Twice a week Active omega 4-jfd-mkb-fish oil 1,000 mg (120 mg-180 mg) Cap Take 2 capsules by mouth daily. Active aspirin 81 mg chewable tablet Take 81 mg by mouth daily. Active metFORMIN (GLUCOPHAGE) 1000 MG tablet Take 1,000 mg by mouth 2 (two) times a day with meals. Active glipiZIDE (GLUCOTROL) 5 MG tablet Take 10 mg by mouth 2 (two) times a day before meals. Active atorvastatin (LIPITOR) 40 MG tablet Take 40 mg by mouth daily. Active empagliflozin (JARDIANCE) 25 mg tablet Take 25 mg by mouth daily. Active isosorbide mononitrate (IMDUR) 30 MG 24 hr tablet Take 30 mg by mouth daily. Active therapeutic multivitamin tablet Take 1 tablet by mouth daily. Active coenzyme Q10 100 mg capsule Take 100 mg by mouth daily. Active Medication-Free Text 5 capsules daily. Fiber capsule Active aspirin 81 MG EC tablet Take 1 tablet (81 mg total) by mouth daily. 30 tablet 11 Active Social History Tobacco Use Types Packs/Day Years Used Date Smoking Tobacco: Never Smokeless Tobacco: Never Alcohol Use Standard Drinks/Week Comments Never 0 (1 standard drink = 0.6 oz pur e alcohol) Education Answer Date Recorded Are you interested in more education? Not on mary e 01/17/2023 Are you concerned about learning? Not on file 01/17/2023 No 01/17/2023 No 01/17/2023 Digital Access Answer Date Recorded No 02/15/2023 No 02/15/2023 No 02/15/2023 Reliable internet access at home? Not on file 02/15/2023 Device with a working camera? Not on file Sex and Gender Information Value Date Recorded Sex Assigned at Not on file Legal Sex Male 1:34 PM EST Gender Identity Not on file Sexual Orientation Not on file Last Filed Vital Signs Vital Sign Reading Time Taken Comments Blood Pressure 133/66 12/11/2021 11:30 AM EDT Pulse 84 12/11/2021 9:11 AM EDT Temperature 36.5 C (97.7 F) 12/11/2021 9:11 AM EDT Respiratory Rate 16 12/11/2021 11:15 AM EDT Oxygen Saturation 95% 12/11/2021 11:30 AM EDT Inhaled Oxygen Concentration - - Weight 113.4 kg (250 lb) 12/04/2021 1:41 PM EDT Height 182.9 cm (6') 12/04/2021 1:41 PM EDT Body Mass Index 33.91 12/04/2021 1:41 PM EDT Plan of Treatment Health Maintenance Due Date Last Done Comments Adult Td,Tdap Booster 1946 CREATININE LEVEL 1946 LIPID PANEL 1946 POTASSIUM LEVEL 1946 TSH LEVEL 1946 DEPRESSION SCREENING 1958 HEPATITIS C SCREENING 1964 PNEUMOCOCCAL VACCINES (50+ y ears) (1 of 1 - PCV) 1996 ZOSTER VACCINES (1 of 2) 1996 RSV VACCINE (1 - 1-dose 75+ series) 2021 INFLUENZA VACCINE (#1) 2025 COVID-19 VACCINE (2024-2 6 season) 2025 SMOKING STATUS SCREENING (On ce After 26 Yrs) Completed 12/11/2021 HEPATITIS A VACCINES Aged Out No long er eligible based on patient's age to complete this topic HIB VACCINES Aged Out No longer eligi ble based on patient's age to complete this topic MENINGOCOCCAL VACCINES (ACWY) Aged Out No longer eligible based on patient's age to complete this topic MENINGOCOCCAL VACCINES (B) Aged Out N o longer eligible based on patient's age to complete this topic Medical Devices Implanted 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 Device Identifier Shelf Expiration Date Model / Serial / Lot Lens Lens Eye Prosthetic Joint Prosthetic Joint Right: Hip Stent Implanted:Qty: 2 Stent Heart Insurance [employer] REPL[employer] REPLAC[employer] MEDICARE PREFERRED HMO REPLACEMENT [employer]PLAC[employer] Advance Directives For more information, please contact: [phone] (9AM - 5PM [place], Thursday-Thursday) * Full Code (Latest Code Status on File) Date Activated Date Inactivated Comments 12/11/2021 6:39 AM Question Answer Comments Code Status Confirmed With: Other (specify below ) Code Discussion Comments: Transcribed from the o rder Care Teams Switcher Relationship Specialty Start Date End Date Lynda Serrano MD [address] [place] [address] [place] [address] PCP - General Internal Medicine 11/26/21 Additional Source Comments The information contained in this document represents components of the legal health record. It is not the complete legal health record.[facility]
--- OUTSIDE RECORDS SUMMARY | 2025-07-06 09:08 | XMS_ITS | Encounter Summary ---
Author Organization [facility] Address [address] [place] [address] Phone Care Team Providers Care Activities Aide Name Role Phone Lynda Serrano MD Primary Care Provider Encounter Details Date Type Department Care Team (Late st Contact Info) Description 12/11/2021 Procedure Pass [facility] [address] [place] [address] Social History Tobacco Use Types Packs/Day Years Used Date Smoking Tobacco: Never Smokeless Tobacco: Never Alcohol Use Standard Drinks/Week Comments Never 0 (1 standard drink = 0.6 oz pur e alcohol) Sex and Gender Information Value Date Recorded Sex Assigned at Not on file Legal Sex Male 1:34 PM EST Gender Identity Not on file Sexual Orientation Not on file documented as of this encounter Plan of Treatment Not on file documented as of this encounter Visit Diagnoses Not on filedocumented in this encounter Care Teams Activities Aide Relationship Specialty Start Date End Date Lynda Serrano MD [address] [place] [address] [place] [address] PCP - General Internal Medicine 11/26/21 documented as of this encounter Additional Source Comments The information contained in this document represents components of the legal health record. It is not the complete legal health record.[facility]
--- OUTSIDE RECORDS SUMMARY | 2025-07-06 09:08 | XMS_ITS | Clinical Summary ---
Author Organization [facility] ity Address [address] [place] [address] Care Team Providers Care Supervisor Phosphoric Acid Name Role Phone Unavailable Primary Care Provider [...] series) 2021 Cholesterol Screening (Lipid Panel) 04/12/2024 Falls Risk Assessment 04/12/2024 Hepatitis C Screening 04/12/2024 Social Influencers of Health Screening 04/12/2024 Depression Screening 09/21/2024 COVID-19 Vaccine (1 - 2023-2 5 season) 2025 Influenza Vaccine (#1) 2025 HIB Vaccines Aged [...] Documents on File Type Date Recorded Patient Direct Care Staffer Expl anation Health Care Decision (hx) 01/01/2017 AD BARBARA DIRECTIVE
--- OUTSIDE RECORDS SUMMARY | 2025-07-06 09:09 | XMS_ITS | Patient Health Record ---
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 Name Role Phone Lynda Serrano Primary Care Provider UnavailUrszula Tracy Unavailable [phone] Allergies No Known Allergies Results Component Value Reference Range Notes HEMOGLOBIN A1C (GLYCOHEMOGLO BIN) Reviewed date:09/02/2024 12:38:28 PM Interpretation: Performing Lab: Notes/Report: HEMOGLOBIN A1C % (HH) 7.0 HEMOGLOBIN A1C (GLYCOHEMOGLO BIN) Reviewed date:03/03/2025 12:41:56 PM Interpretation: Performing Lab: Notes/Report: HEMOGLOBIN A1C % (HH) 7.0 HEMOGLOBIN A1C (GLYCOHEMOGLO BIN) Reviewed date:06/07/2025 12:45:26 PM Interpretation: Performing Lab: Notes/Report: HEMOGLOBIN A1C % (HH) 7.0 Reason For Referral No Information Medications Medication SIG (Take, Route, Frequency, Duration) Notes Start Date End Date Status Extra Depth Orthopedic Shoes (1 Pair) with Customized Heat Molded Multidensity Innersoles (3 Pair) as directed Dx: NIDDM (E11.9), Hammertoe Foot Deformity (M20.41,M20.42), Preulcerative Skin Lesion(s) (L85.1) 09/28/2019 Active metFORMIN HCl Active Extra Depth Orthopedic Shoes (1 Pair) with Customized Heat Molded Multidensity Innersoles (3 Pair) as directed Dx: NIDDM/PVD (E11.59), Hammertoe Foot Deformity (M20.41,M20.42), Preulcerative Skin Lesion(s) (L85.1) 03/17/2018 Active Extra Depth Orthopedic Shoes (1 Pair) with Customized Heat Molded Multidensity Innersoles (3 Pair) as directed Dx: NIDDM/PVD (E11.59), Hammertoe Foot Deformity (M20.41,M20.42), Preulcerative Skin Lesion(s) (L85.1) 12/03/2016 Active Atorvastatin Calcium Active Melbeta 3 Active Vitamin D Active Extra Depth Orthopedic Shoes, (1) Pair With (3) Pair Custom Heat Molded Multidensity Innersoles Dx: NIDDM/PVD(E11.51), Hammertoe Foot Deformity(M20.41,M20.42) , Preulcerative Skin Lesion(s)(L85.1) Wear Daily; Duration: 365 days Active Ciclopirox Olamine 0.77 % 1 application Externally Twice a day; Duration: 30 days Not-Taking glipiZIDE XL 5 MG Oral Ac tive Extra Depth Orthopedic Shoes (1 Pair) with Customized Heat Molded Multidensity Innersoles (3 Pair) as directed Dx: NIDDM/PVD (E11.59), Hammertoe Foot Deformity (M20.41,M20.42), Preulcerative Skin Lesion(s) (L85.1) 07/13/2020 Active Extra Depth Orthopedic Shoes (1 Pair) with Customized Heat Molded Multidensity Innersoles (3 Pair) as directed Dx: NIDDM (E11.9), Hammertoe Foot Deformity (M20.41,M20.42), Preulcerative Skin Lesion(s) (L85.1) 11/12/2022 Active Metoprolol Succinate ER 50 MG 1 tablet Orally Active Levothyroxine Sodium 175 MCG Oral; Duration: 90 Active Co Q 10 Active Lisinopril-hydroCHLOROth iazide 20-12.5 MG Oral; Duration: 90 Acti ve Jardiance Active Isosorbide Mononitrate ER 30 MG 1 tablet in the morning Orally Once a day; Duration: 30 day(s) Active Extra Depth Orthopedic Shoes (1 Pair) with Customized Heat Molded Multidensity Innersoles (3 Pair) as directed Dx: NIDDM/PVD (E11.59), Hammertoe Foot Deformity (M20.41,M20.42), Preulcerative Skin Lesion(s) (L85.1) 03/04/2016 Not-Taking Pravastatin Sodium 80 MG Oral; Duration: 90 Not-Taking glipiZIDE ER 5 MG Oral; Duration: 90 Not-Taking Cranberry Extract No t-Taking Invokana 300 MG Orally Once a day Not-Taking Invokamet 150-1000 MG Oral; Duration: 90 Not-Taking Centrum Orally Active Winnie Aspirin Active Aspir-81 81 MG 1 tablet Orally Once a day Active Immunizations Vaccine Route Administration Date Status Comme nts Influenza Unknown 03/04/2016 Administered Influenza Unknown 03/04/2017 Refused Pt is due to h ave Flu shot just has not recieved it yet Influenza Unknown 07/20/2017 Administered Influenza Unknown 05/22/2018 Administered Influenza Unknown 06/28/2020 Administered Influenza Unknown 06/21/2021 Administered Influenza Unknown 05/22/2022 Administered Influenza Unknown 07/22/2023 Administered Influenza Unknown 06/21/2024 Administered Pneumococcal Unknown 06/16/2012 Administered COVID-19 Moderna Vaccine Unknown 08/06/2021 Administere [...] Problem Acquired hammer toe of right foot (33116830733676 05) Other hammer toe(s) (acquired), right foot (M20.41) Active confirmed Problem Acquired hammer toe of left foot (85186216615669 03) Other hammer toe(s) (acquired), left foot (M20.42) Active confirmed Problem Peripheral circulatory disorder associated with diabetes mellitus (757835610) Type 2 diabetes mellitus with other circulatory complications (E11.59) Active confirmed Problem Acquired hammer toe of left foot (47476732089573 03) Hammer toe of left foot (M20.42) Active confirmed Vital Signs Blood pressure diastolic 64 mm Hg 06/07/2025 Height 5 ft 11 in in 06/07/2025 Blood pressure systolic 118 mm Hg 06/07/2025 Weight 235 lbs 06/07/2025 BMI 32.77 kg/m2 06/07/2025 Encounters Encounter Location Date Provider Diagnosis [address] [address] 09/02/2024 Urszula Cornell Type 2 diabetes mellitus with other circulatory complications E11.59 ; Other hammer toe(s) (acquired), right foot M20.41 ; Tinea unguium B35.1 ; Pain in toe of left foot M79.675 ; Pain in toe of right foot M79.674 and Other hammer toe(s) (acquired), left foot M20.[address] [address] 12/02/2024 Urszula Cornell Type 2 diabetes mellitus with other circulatory complications E11.59 ; Other hammer toe(s) (acquired), right foot M20.41 ; Tinea unguium B35.1 ; Pain in toe of left foot M79.675 ; Pain in toe of right foot M79.674 and Other hammer toe(s) (acquired), left foot M20.[address] [address] 03/03/2025 Urszula Cornell Type 2 diabetes mellitus with other circulatory complications E11.59 ; Tinea unguium B35.1 ; Pain in toe of left foot M79.675 and Pain in toe of right foot M79.[address] [address] 06/07/2025 Urszula Alexa Type 2 diabetes mellitus with other circulatory complications E11.59 ; Tinea unguium B35.1 ; Pain in toe of left foot M79.675 and Pain in toe of right foot M79.[address] [address] 08/30/2024 Urszula Cornell Assessments Encounter Date Diagnosis (ICD Code) Assessment Notes Treatment Notes Treatment Clinical Notes Section Notes 09/02/2024 Other hammer toe(s) (acquired), right foot [...] with other circulatory complications (ICD-10 - E11.59) 03/03/2025 Tinea unguium (ICD-10 - B35.1) 03/03/2025 Type 2 diabetes mellitus with other circulatory complications (ICD-10 - E11.59) 06/07/2025 Type 2 diabetes mellitus with other circulatory complications (ICD-10 - E11.59) 06/07/2025 Tinea unguium (ICD-10 - B35.1) 03/03/2025 Pain in toe of left foot (ICD-10 - M79.675) 12/02/2024 Tinea unguium (ICD-10 - B35.1) 09/02/2024 Tinea unguium (ICD-10 - B35.1) 09/02/2024 Pain in toe of left foot (ICD-10 - M79.675) 12/02/2024 Pain in toe of left foot (ICD-10 - M79.675) 03/03/2025 Pain in toe of right foot (ICD-10 - M79.674) 06/07/2025 Pain in toe of left foot (ICD-10 - M79.675) 06/07/2025 Pain in toe of right foot (ICD-10 - M79.674) 12/02/2024 Pain in toe of right foot (ICD-10 - M79.674) 09/02/2024 Pain in toe of right foot (ICD-10 - M79.674) 09/02/2024 Other hammer toe(s) (acquired), left foot (ICD-10 - M20.42) 12/02/2024 Other hammer toe(s) (acquired), left foot (ICD-10 - M20.42) 03/03/2025 Other Plan Of Treatment Pending Test Test Name Order Date 44073-KGOARHA NAIL, -03/04/2016 77951-AATGWXD NAIL, -06/03/2016 60653-QJDIUAG NAIL, 09-2509/03/2016 56912-ZGJSSSU NAIL, -12/03/2016 38283-QRQXRUK NAIL, -03/04/2017 64148-LLQHEKK NAIL, 09-2506/10/2017 04046-MXPACLS NAIL, -09/09/2017 39031-ENAAONX NAIL, -12/16/2017 01066-CIQCFZC NAIL, -03/17/2018 79961-PAWOMYJ NAIL, 09-2506/16/2018 23156-FOANUBD NAIL, 09-2509/22/2018 19351-MEPA SKIN LESIONS, OVER 4 09/22/19 19 79289-YDBP SKIN LESIONS, OVER 4 06/16/20 18 34969-QPXE SKIN LESIONS, OVER 4 03/17/20 18 60573-CMFM SKIN LESIONS, OVER 4 12/17/19 18 28313-BNUQ SKIN LESIONS, OVER 4 09/09/20 17 06254-YLVI SKIN LESIONS, OVER 4 06/10/20 17 82791-CQBX SKIN LESIONS, OVER 4 03/04/20 17 36061-KHHX SKIN LESIONS, 2 TO 4 12/04/19 17 03069-GKXO SKIN LESIONS, 2 TO 4 09/03/20 16 Q2133-SMVIBMGC DYSTROPHIC NAILS ANY # J2944-AGRLABCU DYSTROPHIC NAILS ANY # V8550-GYOPUDSU DYSTROPHIC NAILS ANY # X4541-DFASVXRD DYSTROPHIC NAILS ANY # B6487-AGCZARSH DYSTROPHIC NAILS ANY # K3075-QUYJHUQV DYSTROPHIC NAILS ANY # H7925-MEQKWKDV DYSTROPHIC NAILS ANY # T6372-EBTACYSM DYSTROPHIC NAILS ANY # F6589-VEJCOSZI DYSTROPHIC NAILS ANY # D9892-DWUKJIYQ DYSTROPHIC NAILS ANY # N1048-KTTAPGZA DYSTROPHIC NAILS ANY # Next Appt Details Provider Name:Urszula gtz, 2025 09:30:00 AM, [address], [place], [address], Insurance Providers Payer Name Payer Address Payer Phone Subscriber Number Group Number Insured Name Patient Relationship to Insured Coverage Start Date Coverage End Date [facility] [employer] Preferred [address] [place] [address] [phone] [id number] Julio Lee Self - patient is the [...]
[2025-07-06 09:57] LABS: Hematocrit 45.0 % (42.0-52.0); Hemoglobin 14.9 g/dl (14.0-18.0); Imm Gran Abs Auto 0.05 X10*3/uL (0.00-0.03); Imm Gran Pct Auto 0.5 % (0.0-0.4); Lymphocytes Absolute Auto 2.4 X10*3/uL (1.2-4.9); Mean Corpuscular HGB Conc 33.1 g/dl (31.0-36.0); Mean Corpuscular Hemoglobin 30.9 pg (27.0-33.0); Mean Corpuscular Volume 93.4 fL (80.0-98.0); NRBC Abs Auto 0.000 X10*3/uL (0.0-0.012); NRBC Pct Auto 0.0 /100WBC (0.0-0.2); Platelet Count 180 X10*3/uL (160-400); Red Blood Count 4.82 X10*6/uL (4.60-5.80); White Blood Count 9.2 X10*3/uL (4.8-10.8)
[2025-07-06 10:49] LABS: Alanine Aminotransferase 22 U/L (0-40); Albumin Level 4.3 g/dL (3.5-5.0); Alkaline Phosphatase 103 U/L (39-117); Anion Gap 11 (12-20); Aspartate Amino Transferase 19 U/L (5-37); Blood Urea Nitrogen 25 mg/dL (9-16); Calcium 9.5 mg/dL (8.4-10.2); Carbon Dioxide 31 mmol/L (22-29); Chloride 106 mmol/L (96-108); Estimated Glomerular Filt Rate > 60; Potassium 4.1 mmol/L (3.3-5.1); Sodium 144 mmol/L (135-145); Total Protein 6.8 g/dL (6.5-8.0)
== END 2025-07-06 08:36 | disposition home or self-care (01) ==
LOC: HO.LAB 08:35
PROVIDERS: PCP Internal Medicine; Visit Provider Internal Medicine
DX: I10 Essential (primary) hypertension (principal); E03.9 Hypothyroidism, unspecified; E11.40 Type 2 diabetes mellitus with diabetic neuropathy, unspecified; Z95.818 Presence of other cardiac implants and grafts; E78.00 Pure hypercholesterolemia, unspecified
CPT/HCPCS: 36415; 80053; 83036; 85025